=== PATIENT | female | born 1965 | race Two or more races ===

== ENCOUNTER 2021-06-13 17:42 | Inpatient (IN) | payer MEDICAID, OTHER ==
[~2021-06-13] VITALS: Ht 157.5 cm; Wt 67.7 kg
[2021-06-13] MEDS ORDERED: GLIP2.5T3 PO (17:53)
[2021-06-13] MEDS ORDERED: LISI40TA13 PO (17:53)
[2021-06-13] MEDS ORDERED: NITROGLYCERIN 0.4MG/HR PATCH TOP ONE (18:15)
[2021-06-13] MEDS ORDERED: LABETALOL HCL 20MG/4ML CARPUJECT IV ONE (18:15)
[2021-06-13 18:41] LABS: BASOPHILS % 0.4 % (0.0-2.0); EOSINOPHILS % 2.6 % (0.0-5.0); HEMATOCRIT. 31.5 % (36.0-48.0); HEMOGLOBIN. 10.9 g/dL (12.0-16.0); LYMPHOCYTES % 29.9 % (20.0-50.0); MEAN CORPUSCULAR HEMOGLOBIN 28.6 pg (28.0-32.0); MEAN CORPUSCULAR VOLUME 83.2 fL (81.0-99.0); MEAN PLATELET VOLUME 9.7 fl (7.4-10.4); MONOCYTES % 4.8 % (2.0-8.0); NEUTROPHILS % 62.3 % (40.0-76.0); PLATELET 194 x1000/uL (130-400); RED BLOOD CELL COUNT 3.79 mill/uL (4.2-5.4); RED CELL DISTRIBUTION WIDTH 13.8 % (11.6-14.6)
[2021-06-13 18:44] LABS: CHLORIDE 110 mEq/L (98-107)
[2021-06-13] MEDS ORDERED: LABETALOL 5MG/ML SYR 20 MG/4 ML SYRINGE IV SCH (18:45)
[2021-06-13] MEDS ORDERED: FUROSEMIDE 100MG/10ML VIAL IVP ONE (19:15)
[2021-06-13] MEDS ORDERED: LABETALOL 5MG/ML SYR 20 MG/4 ML SYRINGE IV NR (20:45)
[2021-06-14] MEDS ORDERED: LISINOPRIL 40MG TABLET PO SCH (04:00)
[2021-06-14] MEDS: HYDRALAZINE 20MG/ML VIAL IV PRN ×2 (06:01→16:15)
[2021-06-14 09:15] VITALS: BP 146/89
[2021-06-14] MEDS ORDERED: IPRATROPIUM/ALBUTEROL 0.5-3(2.5)MG/3ML NEB HHN PRN (09:30)
[2021-06-14] MEDS ORDERED: ACETAMINOPHEN 325MG TABLET PO PRN (09:30)
[2021-06-14] MEDS ORDERED: CLONIDINE 0.1MG TABLET PO PRN (09:30)
[2021-06-14] MEDS ORDERED: DIPHENHYDRAMINE 50MG/ML VIAL IV PRN (09:30)
[2021-06-14 10:16] VITALS: BP 146/89
[2021-06-14 12:00] VITALS: BP 182/95
[2021-06-14] MEDS: AMLODIPINE 5MG TABLET PO SCH ×2 (12:43→21:49)
[2021-06-14] MEDS: FUROSEMIDE 20MG/2ML VIAL IVP SCH (12:44)
[2021-06-14] MEDS: ONDANSETRON HCL 4MG/2ML INJ IV PRN (14:03)
[2021-06-14 16:00] VITALS: BP 192/104
[2021-06-14] MEDS: HYDRALAZINE HCL 25MG TABLET PO SCH ×2 (16:00→23:00)
[2021-06-14 20:00] VITALS: BP 128/65
[2021-06-14] MEDS ORDERED: DEXTROSE 50% WATER 50ML SYRINGE IV PRN (20:00)
[2021-06-14] MEDS: INSULIN LISPRO 100 UNITS/ML SUBCUT SCH (21:00)
[2021-06-14] MEDS: BLOOD SUGAR DIAGNOSTIC STRIP TEST SCH (21:50)
[2021-06-15] VITALS (32 sets, daily range): BP systolic 120–173; BP diastolic 61–123
[2021-06-15] MEDS: HYDRALAZINE HCL 25MG TABLET PO SCH ×3 (05:56→22:31)
[2021-06-15] MEDS ORDERED: EPINEPHRINE 5 MG in DEXT 5% WATER 245 ML IV SCH (06:00)
[2021-06-15] MEDS ORDERED: NOREPINEPHRINE 8 MG in DEXT 5% WATER 242 ML IV SCH (06:00)
[2021-06-15 06:19] LABS: CLARITY URINE CLEAR (CLEAR); COLOR URINE YELLOW (YELLOW); KETONES URINE NEGATIVE (NEGATIVE); LEUKOCYTE ESTERASE URINE TRACE (NEGATIVE); NITRITE URINE NEGATIVE (NEGATIVE); OCCULT BLOOD URINE TRACE (NEGATIVE); PROTEIN URINE 4+ (NEGATIVE); SPECIFIC GRAVITY URINE 1.013 (1.005-1.030); UROBILINOGEN URINE 0.2 E.U./dL (0.2-1.0)
[2021-06-15] MEDS: BLOOD SUGAR DIAGNOSTIC STRIP TEST SCH ×4 (06:27→20:34)
[2021-06-15] MEDS: INSULIN LISPRO 100 UNITS/ML SUBCUT SCH ×4 (07:42→20:34)
[2021-06-15] MEDS ORDERED: POLYMYXIN B SULFATE 500000 UNITS/VIAL ONE (08:21)
[2021-06-15] MEDS ORDERED: BACITRACIN 15GM TUBE TOP ONE (08:21)
[2021-06-15] MEDS ORDERED: THROMBIN (BOVINE) 5000 UNITS/VIAL TOP ONE (08:21)
[2021-06-15] MEDS ORDERED: SODIUM CHLORIDE 0.9% IRRIG SOL 2,000 ML IR ONE (08:21)
[2021-06-15] MEDS ORDERED: SODIUM CHLORIDE 0.9% INJ 10ML FLUSH IVF ONE (08:21)
[2021-06-15] MEDS ORDERED: LEVOFLOXACIN 500MG PREMIX 100 ML IV ONE (08:22)
[2021-06-15] MEDS ORDERED: LISINOPRIL 40MG TABLET PO SCH (09:00)
[2021-06-15 09:01] LABS: BASOPHILS % 0.4 % (0.0-2.0); EOSINOPHILS % 2.7 % (0.0-5.0); HEMATOCRIT. 27.4 % (36.0-48.0); HEMOGLOBIN. 9.3 g/dL (12.0-16.0); MEAN CORPUSCULAR HEMOGLOBIN 28.8 pg (28.0-32.0); MEAN CORPUSCULAR VOLUME 84.7 fL (81.0-99.0); MEAN PLATELET VOLUME 10.2 fl (7.4-10.4); MONOCYTES % 5.9 % (2.0-8.0); PLATELET 157 x1000/uL (130-400); RED BLOOD CELL COUNT 3.24 mill/uL (4.2-5.4); RED CELL DISTRIBUTION WIDTH 14.2 % (11.6-14.6)
[2021-06-15] MEDS ORDERED: BUPIVACAINE HCL/PF 0.25% (2.5MG/ML) 10ML ONE (09:06)
[2021-06-15 09:18] LABS: CHLORIDE 114 mEq/L (98-107)
[2021-06-15 09:25] LABS: HDL CHOLESTEROL 62 mg/dL (40-59); LDL CHOLESTEROL 93 mg/dL (5-100)
[2021-06-15 09:50] LABS: BG BASE EXCESS -6.6 mmol/L (-2.0-2.0); BG DEOXYHEMOGLOBIN 3.4 % (0.0-5.0); BG FRACTION INSPIRED OXYGEN 60; BG HCO3 ACT 18.2 mmol/L (22.0-26.0); BG METHEMOGLOBIN 0.3 % (0.0-1.5); BG OXYGEN SATURATION 96.6 % (92.0-98.5); BG OXYHEMOGLOBIN 96.3 % (94.0-97.0); BG PCO2 33.8 mmHg (35.0-45.0); BG PH 7.349 (7.350-7.450); BG PO2 92.2 mmHg (75.0-100.0); BG SAMPLE SITE LEFT BRACHIAL; BG TOTAL HEMOGLOBIN 10.3 g/dL (12.0-18.0); BG VENT MODE MASK - SIMPLE
[2021-06-15] MEDS: ERYTHROMYCIN BASE 0.5% OPHTH OINT 3.5GM BOTHEYE SCH (10:03)
[2021-06-15] MEDS: FUROSEMIDE 20MG/2ML VIAL IVP SCH (10:04)
[2021-06-15] MEDS: AMLODIPINE 5MG TABLET PO SCH ×2 (10:04→20:32)
[2021-06-15] MEDS ORDERED: POTASSIUM CHLORIDE 20MEQ TABLET SR PO NR (10:15)
[2021-06-15] MEDS ORDERED: ACETAMINOPHEN WITH CODEINE 300/30MG TABLET PO PRN (10:15)
[2021-06-15] MEDS: MORPHINE SULFATE 2 MG/ML CPJ (NOT FOR IM USE) IV PRN (10:25)
[2021-06-15] MEDS: ONDANSETRON HCL 4MG/2ML INJ IV PRN ×2 (12:01→22:42)
[2021-06-15 12:55] LABS: BASOPHILS % 0.3 % (0.0-2.0); EOSINOPHILS % 1.6 % (0.0-5.0); HEMATOCRIT. 31.6 % (36.0-48.0); HEMOGLOBIN. 10.6 g/dL (12.0-16.0); LYMPHOCYTES % 16.8 % (20.0-50.0); MEAN CORPUSCULAR HEMOGLOBIN 28.5 pg (28.0-32.0); MEAN CORPUSCULAR VOLUME 85.2 fL (81.0-99.0); MONOCYTES % 3.7 % (2.0-8.0); NEUTROPHILS % 77.6 % (40.0-76.0); PLATELET 173 x1000/uL (130-400); RED BLOOD CELL COUNT 3.71 mill/uL (4.2-5.4); RED CELL DISTRIBUTION WIDTH 14.2 % (11.6-14.6)
[2021-06-15] MEDS: LISINOPRIL 20MG TABLET PO SCH (18:13)
[2021-06-15 19:29] LABS: BASOPHILS % 0.2 % (0.0-2.0); EOSINOPHILS % 0.4 % (0.0-5.0); HEMATOCRIT. 32.5 % (36.0-48.0); HEMOGLOBIN. 10.8 g/dL (12.0-16.0); LYMPHOCYTES % 11.6 % (20.0-50.0); MEAN CORPUSCULAR HEMOGLOBIN 28.3 pg (28.0-32.0); MEAN CORPUSCULAR VOLUME 85.2 fL (81.0-99.0); MEAN PLATELET VOLUME 10.3 fl (7.4-10.4); MONOCYTES % 3.3 % (2.0-8.0); NEUTROPHILS % 84.5 % (40.0-76.0); PLATELET 182 x1000/uL (130-400); RED BLOOD CELL COUNT 3.81 mill/uL (4.2-5.4); RED CELL DISTRIBUTION WIDTH 14.2 % (11.6-14.6)
[2021-06-16] VITALS (32 sets, daily range): BP systolic 111–155; BP diastolic 57–78
[2021-06-16] MEDS ORDERED: MAGNESIUM 4 G PREMIX 100 ML IV SCH (02:00)
[2021-06-16] MEDS: MORPHINE SULFATE 2 MG/ML CPJ (NOT FOR IM USE) IV PRN ×3 (06:01→16:08)
[2021-06-16] MEDS: HYDRALAZINE HCL 25MG TABLET PO SCH ×3 (06:02→21:55)
[2021-06-16 06:48] LABS: BASOPHILS % 0.3 % (0.0-2.0); EOSINOPHILS % 2.5 % (0.0-5.0); LYMPHOCYTES % 22.8 % (20.0-50.0); MEAN CORPUSCULAR HEMOGLOBIN 28.9 pg (28.0-32.0); MEAN CORPUSCULAR VOLUME 84.1 fL (81.0-99.0); MONOCYTES % 7.6 % (2.0-8.0); NEUTROPHILS % 66.8 % (40.0-76.0); PLATELET 155 x1000/uL (130-400); RED BLOOD CELL COUNT 3.45 mill/uL (4.2-5.4); RED CELL DISTRIBUTION WIDTH 13.7 % (11.6-14.6)
[2021-06-16] MEDS: INSULIN LISPRO 100 UNITS/ML SUBCUT SCH ×2 (08:02→13:02)
[2021-06-16] MEDS: BLOOD SUGAR DIAGNOSTIC STRIP TEST SCH ×2 (08:02→12:14)
[2021-06-16] MEDS: AMLODIPINE 5MG TABLET PO SCH ×2 (08:38→21:13)
[2021-06-16] MEDS: ERYTHROMYCIN BASE 0.5% OPHTH OINT 3.5GM BOTHEYE SCH (08:38)
[2021-06-16] MEDS: LISINOPRIL 20MG TABLET PO SCH ×2 (08:38→21:14)
[2021-06-16] MEDS: ONDANSETRON HCL 4MG/2ML INJ IV PRN (16:08)
[2021-06-16] MEDS: SODIUM CHLORIDE 0.45% 1,000 ML IV SCH (20:49)
[2021-06-17] VITALS (12 sets, daily range): BP systolic 96–136; BP diastolic 52–77
[2021-06-17] MEDS ORDERED: DEXTROSE 50% WATER 50ML SYRINGE IV PRN (04:45)
[2021-06-17] MEDS: HYDRALAZINE HCL 25MG TABLET PO SCH ×3 (06:00→20:46)
[2021-06-17] MEDS: BLOOD SUGAR DIAGNOSTIC STRIP TEST SCH ×4 (06:13→20:46)
[2021-06-17] MEDS: AMLODIPINE 5MG TABLET PO SCH ×2 (08:43→20:46)
[2021-06-17] MEDS: LISINOPRIL 20MG TABLET PO SCH (08:43)
[2021-06-17] MEDS: INSULIN LISPRO 100 UNITS/ML SUBCUT SCH ×4 (08:43→20:44)
[2021-06-17 09:29] LABS: HEMATOCRIT. 28.6 % (36.0-48.0); HEMOGLOBIN. 9.6 g/dL (12.0-16.0); MEAN CORPUSCULAR HEMOGLOBIN 28.5 pg (28.0-32.0); MEAN CORPUSCULAR VOLUME 85.5 fL (81.0-99.0); MEAN PLATELET VOLUME 10.6 fl (7.4-10.4); PLATELET 151 x1000/uL (130-400); RED BLOOD CELL COUNT 3.35 mill/uL (4.2-5.4); RED CELL DISTRIBUTION WIDTH 14.4 % (11.6-14.6)
[2021-06-17] MEDS: ERYTHROMYCIN BASE 0.5% OPHTH OINT 3.5GM BOTHEYE SCH (09:45)
[2021-06-17] MEDS: MORPHINE SULFATE 2 MG/ML CPJ (NOT FOR IM USE) IV PRN ×2 (10:08→16:58)
[2021-06-17] MEDS: SODIUM CHLORIDE 0.45% 1,000 ML IV SCH (11:56)
[2021-06-17 14:19] LABS: PLATELET ESTIMATE NORMAL
[2021-06-17] MEDS ORDERED: FUROSEMIDE 20MG/2ML VIAL IVP NR ×2 (15:45→17:15)
[2021-06-17] MEDS ORDERED: SODIUM CHLORIDE 0.9% IV ONE (18:30)
[2021-06-17] MEDS ORDERED: FUROSEMIDE IV ONE (18:30)
[2021-06-18] VITALS (13 sets, daily range): BP systolic 118–146; BP diastolic 56–83
[2021-06-18] MEDS: MORPHINE SULFATE 2 MG/ML CPJ (NOT FOR IM USE) IV PRN (00:40)
[2021-06-18] MEDS: HYDRALAZINE HCL 25MG TABLET PO SCH ×3 (05:18→21:34)
[2021-06-18] MEDS: INSULIN LISPRO 100 UNITS/ML SUBCUT SCH ×5 (05:57→21:35)
[2021-06-18] MEDS: BLOOD SUGAR DIAGNOSTIC STRIP TEST SCH ×5 (05:57→21:35)
[2021-06-18 06:51] LABS: BASOPHILS % 0.6 % (0.0-2.0); EOSINOPHILS % 0.5 % (0.0-5.0); HEMATOCRIT. 29.9 % (36.0-48.0); HEMOGLOBIN. 9.8 g/dL (12.0-16.0); LYMPHOCYTES % 8.5 % (20.0-50.0); MEAN CORPUSCULAR HEMOGLOBIN 28.3 pg (28.0-32.0); MEAN PLATELET VOLUME 11.3 fl (7.4-10.4); MONOCYTES % 3.8 % (2.0-8.0); NEUTROPHILS % 86.6 % (40.0-76.0); PLATELET 166 x1000/uL (130-400); RED BLOOD CELL COUNT 3.48 mill/uL (4.2-5.4); RED CELL DISTRIBUTION WIDTH 14.3 % (11.6-14.6)
[2021-06-18] MEDS ORDERED: FUROSEMIDE 20MG TABLET PO SCH (09:00)
[2021-06-18] MEDS ORDERED: FUROSEMIDE 20MG TABLET PO NR (09:00)
[2021-06-18] MEDS ORDERED: NALOXONE HCL 0.4MG/ML VIAL IV PRN (09:30)
[2021-06-18] MEDS: ERYTHROMYCIN BASE 0.5% OPHTH OINT 3.5GM BOTHEYE SCH (09:44)
[2021-06-18] MEDS: AMLODIPINE 5MG TABLET PO SCH ×2 (09:44→21:34)
[2021-06-18] MEDS: SODIUM CHLORIDE 0.45% 1,000 ML IV SCH (14:07)
[2021-06-18] MEDS ORDERED: EPOETIN ALFA-EPBX 4,000 UNIT/ML VIAL SUBCUT NR (21:00)
[2021-06-18] MEDS: SODIUM CHLORIDE 0.9% 1,000 ML IV SCH (21:33)
[2021-06-18] MEDS: IRON SUCROSE COMPLEX 100 MG/5 ML ML IV SCH (21:34)
[2021-06-19] VITALS (13 sets, daily range): BP systolic 102–159; BP diastolic 67–84
[2021-06-19] MEDS: HYDRALAZINE HCL 25MG TABLET PO SCH ×3 (05:57→21:24)
[2021-06-19 06:37] LABS: BASOPHILS % 0.2 % (0.0-2.0); EOSINOPHILS % 2.2 % (0.0-5.0); HEMATOCRIT. 30.1 % (36.0-48.0); HEMOGLOBIN. 10.2 g/dL (12.0-16.0); LYMPHOCYTES % 9.1 % (20.0-50.0); MEAN CORPUSCULAR HEMOGLOBIN 29.6 pg (28.0-32.0); MEAN CORPUSCULAR VOLUME 87.3 fL (81.0-99.0); MEAN PLATELET VOLUME 11.2 fl (7.4-10.4); MONOCYTES % 4.2 % (2.0-8.0); NEUTROPHILS % 84.3 % (40.0-76.0); PLATELET 210 x1000/uL (130-400); RED BLOOD CELL COUNT 3.45 mill/uL (4.2-5.4); RED CELL DISTRIBUTION WIDTH 14.2 % (11.6-14.6)
[2021-06-19] MEDS: AMLODIPINE 5MG TABLET PO SCH ×2 (09:42→21:24)
[2021-06-19] MEDS: ERYTHROMYCIN BASE 0.5% OPHTH OINT 3.5GM BOTHEYE SCH (09:44)
[2021-06-19] MEDS: INSULIN LISPRO 100 UNITS/ML SUBCUT SCH ×3 (12:20→21:00)
[2021-06-19] MEDS: BLOOD SUGAR DIAGNOSTIC STRIP TEST SCH ×3 (12:47→21:07)
[2021-06-19] MEDS: SODIUM CHLORIDE 0.9% 1,000 ML IV SCH (13:39)
[2021-06-19] MEDS ORDERED: SODIUM POLYSTYRENE SULFONATE 15 G/60 ML BOT PO SCH (15:00)
[2021-06-19] MEDS ORDERED: HEPARIN 1000 UNITS/ML 10ML ONE (15:13)
[2021-06-19] MEDS ORDERED: LIDOCAINE HCL 1% 20ML VIAL (Pyxis) INJ ONE (15:13)
[2021-06-19] MEDS ORDERED: LINEZOLID 600 MG PREMIX 300 ML IV SCH (17:00)
[2021-06-19 18:13] LABS: HEPATITIS B SURFACE ANTIGEN NEGATIVE
[2021-06-19] MEDS ORDERED: LACTULOSE 20G/30ML UDC PO SCH (20:00)
[2021-06-19] MEDS ORDERED: EPOETIN ALFA-EPBX 4,000 UNIT/ML VIAL SUBCUT SCH (21:00)
[2021-06-19] MEDS: LINEZOLID 600 MG PREMIX 300 ML IV SCH (21:23)
[2021-06-19] MEDS: IRON SUCROSE COMPLEX 100 MG/5 ML ML IV SCH (21:24)
[2021-06-19 21:35] LABS: HEMATOCRIT 27.8 % (36.0-48.0); HEMOGLOBIN 9.6 g/dL (12.0-16.0); MEAN CORPUSCULAR HEMOGLOBIN 29.1 pg (28.0-32.0); MEAN CORPUSCULAR VOLUME 84.3 fL (81.0-99.0); PLATELET 201 x1000/uL (130-400); RED BLOOD CELL COUNT 3.29 mill/uL (4.2-5.4); RED CELL DISTRIBUTION WIDTH 14.3 % (11.6-14.6)
[2021-06-20] VITALS (11 sets, daily range): BP systolic 134–158; BP diastolic 69–116
[2021-06-20 06:05] LABS: BASOPHILS % 0.4 % (0.0-2.0); EOSINOPHILS % 3.4 % (0.0-5.0); HEMATOCRIT. 28.3 % (36.0-48.0); HEMOGLOBIN. 9.5 g/dL (12.0-16.0); MEAN CORPUSCULAR HEMOGLOBIN 28.7 pg (28.0-32.0); MEAN CORPUSCULAR VOLUME 85.4 fL (81.0-99.0); MEAN PLATELET VOLUME 9.9 fl (7.4-10.4); MONOCYTES % 5.2 % (2.0-8.0); PLATELET 208 x1000/uL (130-400); RED BLOOD CELL COUNT 3.32 mill/uL (4.2-5.4); RED CELL DISTRIBUTION WIDTH 13.7 % (11.6-14.6)
[2021-06-20 06:14] LABS: CHLORIDE 107 mEq/L (98-107)
[2021-06-20] MEDS: BLOOD SUGAR DIAGNOSTIC STRIP TEST SCH ×4 (06:16→21:32)
[2021-06-20] MEDS: SODIUM CHLORIDE 0.9% 1,000 ML IV SCH ×2 (06:16→22:03)
[2021-06-20] MEDS: HYDRALAZINE HCL 25MG TABLET PO SCH ×3 (06:16→21:32)
[2021-06-20] MEDS: INSULIN LISPRO 100 UNITS/ML SUBCUT SCH ×4 (06:46→21:00)
[2021-06-20] MEDS: ERYTHROMYCIN BASE 0.5% OPHTH OINT 3.5GM BOTHEYE SCH (08:31)
[2021-06-20] MEDS: AMLODIPINE 5MG TABLET PO SCH ×2 (08:32→21:32)
[2021-06-20] MEDS: LINEZOLID 600 MG PREMIX 300 ML IV SCH ×2 (08:32→20:07)
[2021-06-20] MEDS: IRON SUCROSE COMPLEX 100 MG/5 ML ML IV SCH (21:30)
[2021-06-21] VITALS (16 sets, daily range): BP systolic 114–173; BP diastolic 46–94
[2021-06-21] MEDS: HYDRALAZINE HCL 25MG TABLET PO SCH ×3 (06:00→14:52)
[2021-06-21] MEDS: BLOOD SUGAR DIAGNOSTIC STRIP TEST SCH ×4 (06:25→22:14)
[2021-06-21] MEDS: INSULIN LISPRO 100 UNITS/ML SUBCUT SCH ×4 (06:34→22:24)
[2021-06-21] MEDS: LINEZOLID 600 MG PREMIX 300 ML IV SCH ×2 (07:42→20:46)
[2021-06-21] MEDS ORDERED: TUBERCULIN,PURIF.PROT.DERIV. 5 TU/0.1 ML SYR ID ONE (09:00)
[2021-06-21] MEDS: ERYTHROMYCIN BASE 0.5% OPHTH OINT 3.5GM BOTHEYE SCH (10:02)
[2021-06-21] MEDS: AMLODIPINE 5MG TABLET PO SCH ×2 (10:02→20:46)
[2021-06-21 11:14] LABS: BASOPHILS % 0.3 % (0.0-2.0); EOSINOPHILS % 6.2 % (0.0-5.0); HEMATOCRIT. 34.1 % (36.0-48.0); HEMOGLOBIN. 11.3 g/dL (12.0-16.0); LYMPHOCYTES % 17.7 % (20.0-50.0); MEAN CORPUSCULAR HEMOGLOBIN 28.2 pg (28.0-32.0); MEAN CORPUSCULAR VOLUME 85.1 fL (81.0-99.0); MEAN PLATELET VOLUME 9.9 fl (7.4-10.4); MONOCYTES % 6.4 % (2.0-8.0); NEUTROPHILS % 69.4 % (40.0-76.0); PLATELET 266 x1000/uL (130-400); RED CELL DISTRIBUTION WIDTH 13.8 % (11.6-14.6)
[2021-06-21 14:49] LABS: HEPATITIS B SURFACE ANTIGEN NEGATIVE
[2021-06-21] MEDS: IRON SUCROSE COMPLEX 100 MG/5 ML ML IV SCH (20:48)
[2021-06-21] MEDS: HYDRALAZINE HCL 50MG TABLET PO SCH (22:00)
[2021-06-22] VITALS (15 sets, daily range): BP systolic 141–164; BP diastolic 65–94
[2021-06-22 06:43] LABS: BASOPHILS % 0.3 % (0.0-2.0); EOSINOPHILS % 4.1 % (0.0-5.0); HEMOGLOBIN. 10.8 g/dL (12.0-16.0); LYMPHOCYTES % 16.1 % (20.0-50.0); MEAN CORPUSCULAR HEMOGLOBIN 28.5 pg (28.0-32.0); MEAN CORPUSCULAR VOLUME 84.5 fL (81.0-99.0); MEAN PLATELET VOLUME 9.6 fl (7.4-10.4); MONOCYTES % 8.6 % (2.0-8.0); NEUTROPHILS % 70.9 % (40.0-76.0); PLATELET 247 x1000/uL (130-400); RED BLOOD CELL COUNT 3.79 mill/uL (4.2-5.4); RED CELL DISTRIBUTION WIDTH 13.9 % (11.6-14.6)
[2021-06-22] MEDS: HYDRALAZINE HCL 50MG TABLET PO SCH ×3 (06:55→23:15)
[2021-06-22] MEDS: BLOOD SUGAR DIAGNOSTIC STRIP TEST SCH ×4 (06:55→20:38)
[2021-06-22] MEDS: INSULIN LISPRO 100 UNITS/ML SUBCUT SCH ×4 (07:20→20:38)
[2021-06-22] MEDS: LINEZOLID 600 MG PREMIX 300 ML IV SCH ×2 (09:26→20:34)
[2021-06-22] MEDS: AMLODIPINE 5MG TABLET PO SCH ×2 (09:27→20:35)
[2021-06-22] MEDS: DOCUSATE SODIUM 100MG CAPSULE PO SCH ×2 (09:27→17:03)
[2021-06-22] MEDS: ERYTHROMYCIN BASE 0.5% OPHTH OINT 3.5GM BOTHEYE SCH (09:29)
[2021-06-22 10:33] LABS: BG BASE EXCESS -1.6 mmol/L (-2.0-2.0); BG CARBOXYHEMOGLOBIN 0.3 % (0.5-1.5); BG DEOXYHEMOGLOBIN 7.6 % (0.0-5.0); BG FRACTION INSPIRED OXYGEN 24; BG METHEMOGLOBIN 0.1 % (0.0-1.5); BG OXYGEN SATURATION 92.4 % (92.0-98.5); BG PCO2 38.5 mmHg (35.0-45.0); BG PH 7.394 (7.350-7.450); BG PO2 62.3 mmHg (75.0-100.0); BG SAMPLE SITE RIGHT RADIAL; BG TOTAL HEMOGLOBIN 11.7 g/dL (12.0-18.0); BG VENT MODE NASAL CANNULA
[2021-06-23] VITALS (15 sets, daily range): BP systolic 126–156; BP diastolic 68–88
[2021-06-23] MEDS: HYDRALAZINE HCL 50MG TABLET PO SCH ×3 (06:00→21:48)
[2021-06-23] MEDS: BLOOD SUGAR DIAGNOSTIC STRIP TEST SCH ×4 (06:42→20:49)
[2021-06-23] MEDS: INSULIN LISPRO 100 UNITS/ML SUBCUT SCH ×4 (07:20→20:50)
[2021-06-23 07:44] LABS: BASOPHILS % 0.3 % (0.0-2.0); EOSINOPHILS % 5.3 % (0.0-5.0); HEMATOCRIT. 33.6 % (36.0-48.0); HEMOGLOBIN. 11.3 g/dL (12.0-16.0); LYMPHOCYTES % 21.9 % (20.0-50.0); MEAN CORPUSCULAR HEMOGLOBIN 28.4 pg (28.0-32.0); MEAN CORPUSCULAR VOLUME 84.4 fL (81.0-99.0); MEAN PLATELET VOLUME 9.1 fl (7.4-10.4); MONOCYTES % 10.1 % (2.0-8.0); NEUTROPHILS % 62.4 % (40.0-76.0); PLATELET 262 x1000/uL (130-400); RED BLOOD CELL COUNT 3.98 mill/uL (4.2-5.4); RED CELL DISTRIBUTION WIDTH 13.7 % (11.6-14.6)
[2021-06-23] MEDS: LINEZOLID 600 MG PREMIX 300 ML IV SCH ×2 (09:13→20:49)
[2021-06-23] MEDS: DOCUSATE SODIUM 100MG CAPSULE PO SCH ×2 (09:13→17:21)
[2021-06-23] MEDS: AMLODIPINE 5MG TABLET PO SCH ×2 (09:14→20:49)
[2021-06-24] VITALS (13 sets, daily range): BP systolic 113–154; BP diastolic 68–92
[2021-06-24] MEDS: HYDRALAZINE HCL 50MG TABLET PO SCH ×3 (05:19→21:00)
[2021-06-24 06:50] LABS: BASOPHILS % 0.3 % (0.0-2.0); EOSINOPHILS % 3.9 % (0.0-5.0); HEMATOCRIT. 32.8 % (36.0-48.0); LYMPHOCYTES % 22.4 % (20.0-50.0); MEAN CORPUSCULAR HEMOGLOBIN 28.5 pg (28.0-32.0); MEAN CORPUSCULAR VOLUME 84.8 fL (81.0-99.0); MEAN PLATELET VOLUME 8.9 fl (7.4-10.4); NEUTROPHILS % 63.4 % (40.0-76.0); PLATELET 264 x1000/uL (130-400); RED BLOOD CELL COUNT 3.87 mill/uL (4.2-5.4); RED CELL DISTRIBUTION WIDTH 14.3 % (11.6-14.6)
[2021-06-24] MEDS: INSULIN LISPRO 100 UNITS/ML SUBCUT SCH ×4 (07:20→20:52)
[2021-06-24] MEDS: BLOOD SUGAR DIAGNOSTIC STRIP TEST SCH ×4 (07:37→20:50)
[2021-06-24] MEDS: AMLODIPINE 5MG TABLET PO SCH ×2 (08:48→20:50)
[2021-06-24] MEDS: LINEZOLID 600 MG PREMIX 300 ML IV SCH ×2 (08:48→20:50)
[2021-06-24] MEDS: DOCUSATE SODIUM 100MG CAPSULE PO SCH ×2 (08:48→17:00)
[2021-06-24] MEDS ORDERED: BISACODYL 10MG SUPP PR PRN (09:45)
[2021-06-25] VITALS (11 sets, daily range): BP systolic 105–143; BP diastolic 50–78
[2021-06-25] MEDS: HYDRALAZINE HCL 50MG TABLET PO SCH ×3 (05:47→21:02)
[2021-06-25] MEDS: BLOOD SUGAR DIAGNOSTIC STRIP TEST SCH ×4 (06:03→20:23)
[2021-06-25] MEDS: INSULIN LISPRO 100 UNITS/ML SUBCUT SCH ×4 (06:42→21:01)
[2021-06-25] MEDS: LINEZOLID 600 MG PREMIX 300 ML IV SCH ×2 (07:57→20:22)
[2021-06-25] MEDS: DOCUSATE SODIUM 100MG CAPSULE PO SCH ×2 (09:19→17:00)
[2021-06-25] MEDS: AMLODIPINE 5MG TABLET PO SCH ×2 (09:19→21:02)
[2021-06-25] MEDS ORDERED: TUBERCULIN,PURIF.PROT.DERIV. 5 TU/0.1 ML SYR ID ONE (11:15)
[2021-06-25] MEDS ORDERED: HEPATITIS B VIRUS VACCINE-PF 10 MCG/0.5 VIAL IM ONE (16:00)
[2021-06-26] VITALS (10 sets, daily range): BP systolic 121–160; BP diastolic 57–83
[2021-06-26] MEDS: HYDRALAZINE HCL 50MG TABLET PO SCH ×3 (05:40→22:34)
[2021-06-26] MEDS: BLOOD SUGAR DIAGNOSTIC STRIP TEST SCH ×4 (05:52→21:18)
[2021-06-26 06:25] LABS: BASOPHILS % 0.2 % (0.0-2.0); EOSINOPHILS % 4.4 % (0.0-5.0); HEMATOCRIT. 31.3 % (36.0-48.0); HEMOGLOBIN. 10.4 g/dL (12.0-16.0); LYMPHOCYTES % 21.9 % (20.0-50.0); MEAN CORPUSCULAR HEMOGLOBIN 28.5 pg (28.0-32.0); MEAN CORPUSCULAR VOLUME 85.3 fL (81.0-99.0); MEAN PLATELET VOLUME 8.4 fl (7.4-10.4); MONOCYTES % 7.5 % (2.0-8.0); PLATELET 254 x1000/uL (130-400); RED BLOOD CELL COUNT 3.67 mill/uL (4.2-5.4); RED CELL DISTRIBUTION WIDTH 13.7 % (11.6-14.6)
[2021-06-26] MEDS: INSULIN LISPRO 100 UNITS/ML SUBCUT SCH ×4 (06:39→21:00)
[2021-06-26] MEDS: LINEZOLID 600 MG PREMIX 300 ML IV SCH ×2 (09:35→20:27)
[2021-06-26] MEDS: DOCUSATE SODIUM 100MG CAPSULE PO SCH ×2 (09:35→16:52)
[2021-06-26] MEDS: AMLODIPINE 5MG TABLET PO SCH ×2 (09:36→20:28)
[2021-06-26 19:25] LABS: CLARITY URINE CLEAR (CLEAR); COLOR URINE YELLOW (YELLOW); KETONES URINE NEGATIVE (NEGATIVE); LEUKOCYTE ESTERASE URINE TRACE (NEGATIVE); NITRITE URINE NEGATIVE (NEGATIVE); OCCULT BLOOD URINE NEGATIVE (NEGATIVE); PROTEIN URINE 3+ (NEGATIVE); SPECIFIC GRAVITY URINE 1.016 (1.005-1.030); UROBILINOGEN URINE 0.2 E.U./dL (0.2-1.0)
[2021-06-26] MEDS: METOPROLOL TARTRATE 25MG TABLET PO SCH (20:28)
[2021-06-27] VITALS (22 sets, daily range): BP systolic 111–165; BP diastolic 51–92
[2021-06-27] MEDS: BLOOD SUGAR DIAGNOSTIC STRIP TEST SCH ×4 (06:04→20:17)
[2021-06-27] MEDS: HYDRALAZINE HCL 50MG TABLET PO SCH ×3 (06:06→22:00)
[2021-06-27 07:07] LABS: BASOPHILS % 0.3 % (0.0-2.0); HEMATOCRIT. 30.5 % (36.0-48.0); HEMOGLOBIN. 10.3 g/dL (12.0-16.0); LYMPHOCYTES % 20.6 % (20.0-50.0); MEAN CORPUSCULAR HEMOGLOBIN 28.8 pg (28.0-32.0); MEAN CORPUSCULAR VOLUME 84.8 fL (81.0-99.0); MEAN PLATELET VOLUME 8.1 fl (7.4-10.4); MONOCYTES % 4.2 % (2.0-8.0); NEUTROPHILS % 69.9 % (40.0-76.0); PLATELET 255 x1000/uL (130-400); RED BLOOD CELL COUNT 3.59 mill/uL (4.2-5.4); RED CELL DISTRIBUTION WIDTH 14.1 % (11.6-14.6)
[2021-06-27] MEDS: INSULIN LISPRO 100 UNITS/ML SUBCUT SCH ×4 (07:20→20:39)
[2021-06-27] MEDS: LINEZOLID 600 MG PREMIX 300 ML IV SCH ×2 (08:32→20:17)
[2021-06-27] MEDS: METOPROLOL TARTRATE 25MG TABLET PO SCH ×2 (09:00→20:17)
[2021-06-27] MEDS: DOCUSATE SODIUM 100MG CAPSULE PO SCH ×2 (09:00→17:00)
[2021-06-27] MEDS: AMLODIPINE 5MG TABLET PO SCH ×2 (09:00→20:17)
[2021-06-27] MEDS ORDERED: LIDOCAINE HCL 1% 30ML VIAL (10MG/ML) ONE (09:50)
[2021-06-27] MEDS ORDERED: FENTANYL CITRATE/PF 50MCG/ML 2ML VIAL ONE (09:50)
[2021-06-27] MEDS ORDERED: HEPARIN 1000 UNITS/ML 10ML ONE (09:50)
[2021-06-27 09:53] LABS: PARTIAL THROMBOPLASTIN TIME 29.6 sec (23.4-31.0); PROTHROMBIN TIME 10.3 sec (9.6-11.0)
[2021-06-27] MEDS ORDERED: HYDR-4135 PO (13:15)
[2021-06-27] MEDS ORDERED: AMLO5TAB88 PO (13:15)
[2021-06-27] MEDS ORDERED: METO25TA6 PO (13:15)
[2021-06-27] MEDS ORDERED: LINE600T14 PO (13:15)
== END 2021-06-27 23:20 | DRG 207 ==
LOC: ER 17:42 → 6WST 21:38 → EDBEDREQ 21:41 → EDBEDREQTM 21:41 → CANRESERV 23:01 → ENRESERV 23:01 → CVICU 06-15 09:17 → 3WST 06-16 12:58 → 6EST 06-22 02:35 → 3WST 06-22 02:39
PROVIDERS: ADMIT Internal Medicine; ATTEND Internal Medicine
PROC: 0W9D30Z Drainage of Pericardial Cavity with Drainage Device, Percutaneous Approach (ICD-10-PCS; principal; 2021-06-15)
PROC: 02HV33Z Insertion of Infusion Device into Superior Vena Cava, Percutaneous Approach (ICD-10-PCS; 2021-06-19)
PROC: B548ZZA Ultrasonography of Superior Vena Cava, Guidance (ICD-10-PCS; 2021-06-19)
PROC: 5A1D70Z Performance of Urinary Filtration, Intermittent, Less than 6 Hours Per Day (ICD-10-PCS; 2021-06-19)
PROC: 5A1D70Z Performance of Urinary Filtration, Intermittent, Less than 6 Hours Per Day (ICD-10-PCS; 2021-06-21)
PROC: 5A1D70Z Performance of Urinary Filtration, Intermittent, Less than 6 Hours Per Day (ICD-10-PCS; 2021-06-24)
PROC: 0JH63XZ Insertion of Tunneled Vascular Access Device into Chest Subcutaneous Tissue and Fascia, Percutaneous Approach (ICD-10-PCS; 2021-06-27)
PROC: 02HV33Z Insertion of Infusion Device into Superior Vena Cava, Percutaneous Approach (ICD-10-PCS; 2021-06-27)
PROC: B518ZZA Fluoroscopy of Superior Vena Cava, Guidance (ICD-10-PCS; 2021-06-27)
PROC: 05PYX3Z Removal of Infusion Device from Upper Vein, External Approach (ICD-10-PCS; 2021-06-27)
DX: I30.1 Infective pericarditis (principal); I31.4 Cardiac tamponade; N17.0 Acute kidney failure with tubular necrosis; A41.9 Sepsis, unspecified organism; E46 Unspecified protein-calorie malnutrition; I47.2 Ventricular tachycardia; I95.9 Hypotension, unspecified; E11.22 Type 2 diabetes mellitus with diabetic chronic kidney disease; B95.2 Enterococcus as the cause of diseases classified elsewhere; I31.3 Pericardial effusion (noninflammatory); E87.0 Hyperosmolality and hypernatremia; D64.9 Anemia, unspecified; N18.4 Chronic kidney disease, stage 4 (severe); I13.10 Hypertensive heart and chronic kidney disease without heart failure, with stage 1 through stage 4 chronic kidney disease, or unspecified chronic kidney disease; J90 Pleural effusion, not elsewhere classified; Z20.822 Contact with and (suspected) exposure to COVID-19; I16.1 Hypertensive emergency; E87.70 Fluid overload, unspecified; J98.11 Atelectasis; E87.5 Hyperkalemia; R09.02 Hypoxemia; I34.0 Nonrheumatic mitral (valve) insufficiency; T50.2X5A Adverse effect of carbonic-anhydrase inhibitors, benzothiadiazides and other diuretics, initial encounter; Z90.49 Acquired absence of other specified parts of digestive tract; Z99.2 Dependence on renal dialysis; Y92.89 Other specified places as the place of occurrence of the external cause; Z68.27 Body mass index [BMI] 27.0-27.9, adult
CPT/HCPCS: 36415; 36558; 36589; 36600; 71045; 76770; 77001; 80048; 80053; 80061; 81003; 82140; 82375; 82805; 82962; 83036; 83735; 83880; 84145; 84443; 84484; 85025; 85027; 86705; 86709; 86803; 87070; 87075; 87077; 87102; 87116; 87186; 87340; 87426; 88108; 88305; 88312; 90585; 93005; 93306; 93970; 97110; 97116; 97162; 97166; 97530; 97535; 99285; C1750; C1752; C1769; C1887; J0360; J0885; J1642; J1644; J1815; J1940; J1956; J2020; J2270; J2405; J3010; J3475; J3490; J7030; J7060; L3908; L8514; U0003; U0005; A4315

== ENCOUNTER 2021-08-16 13:34 | Inpatient (IN) | payer MEDICAID, OTHER ==
[~2021-08-16] VITALS: Ht 152.4 cm; Wt 56.7 kg
[~2021-08-16 13:34] MED LIST: AMLO5TAB88 PO; HYDR-4135 PO; LINE600T14 PO; METO25TA6 PO
[2021-08-16 14:48] LABS: BASOPHILS % 0.4 % (0.0-2.0); EOSINOPHILS % 6.1 % (0.0-5.0); HEMATOCRIT. 28.9 % (36.0-48.0); HEMOGLOBIN. 9.4 g/dL (12.0-16.0); MEAN CORPUSCULAR HEMOGLOBIN 28.4 pg (28.0-32.0); MEAN CORPUSCULAR VOLUME 87.5 fL (81.0-99.0); MEAN PLATELET VOLUME 8.7 fl (7.4-10.4); MONOCYTES % 8.3 % (2.0-8.0); NEUTROPHILS % 42.2 % (40.0-76.0); PLATELET 287 x1000/uL (130-400); RED CELL DISTRIBUTION WIDTH 15.7 % (11.6-14.6)
[2021-08-16 14:59] LABS: PHOSPHORUS 5.9 mg/dL (2.5-4.9)
[2021-08-17] VITALS (7 sets, daily range): BP systolic 158–188; BP diastolic 69–86
[2021-08-17] MEDS ORDERED: EPOETIN ALFA-EPBX 4,000 UNIT/ML VIAL SUBCUT SCH (01:45)
[2021-08-17] MEDS ORDERED: DEXTROSE 50% WATER 50ML SYRINGE IV PRN (03:45)
[2021-08-17] MEDS: INSULIN LISPRO 100 UNITS/ML SUBCUT SCH ×4 (05:40→20:58)
[2021-08-17] MEDS: BLOOD SUGAR DIAGNOSTIC STRIP TEST SCH ×4 (05:40→20:59)
[2021-08-17] MEDS ORDERED: HYDRALAZINE HCL 25MG TABLET PO SCH (06:00)
[2021-08-17] MEDS: METOPROLOL TARTRATE 25MG TABLET PO SCH ×2 (08:04→20:59)
[2021-08-17] MEDS ORDERED: AMLODIPINE 5MG TABLET PO SCH (09:00)
[2021-08-17] MEDS: HYDRALAZINE HCL 100MG TABLET PO SCH ×2 (13:08→21:50)
[2021-08-17] MEDS: AMLODIPINE 5MG TABLET PO SCH (16:14)
[2021-08-17] MEDS: MINOXIDIL 2.5MG TABLET PO SCH (20:58)
[2021-08-17] MEDS: FUROSEMIDE 40MG TABLET PO SCH (23:39)
[2021-08-18] VITALS: BP 149/73
[2021-08-18] MEDS: IRON SUCROSE COMPLEX 100 MG/5 ML ML IV SCH (01:11)
[2021-08-18 04:00] VITALS: BP 144/68
[2021-08-18] MEDS: HYDRALAZINE HCL 100MG TABLET PO SCH ×3 (05:24→21:42)
[2021-08-18 07:45] VITALS: BP 145/65
[2021-08-18] MEDS: INSULIN LISPRO 100 UNITS/ML SUBCUT SCH ×4 (07:50→21:00)
[2021-08-18] MEDS: BLOOD SUGAR DIAGNOSTIC STRIP TEST SCH ×4 (07:50→21:39)
[2021-08-18] MEDS: FUROSEMIDE 40MG TABLET PO SCH (08:04)
[2021-08-18] MEDS: MINOXIDIL 2.5MG TABLET PO SCH ×2 (08:04→21:41)
[2021-08-18] MEDS: AMLODIPINE 5MG TABLET PO SCH ×2 (08:04→16:00)
[2021-08-18] MEDS: METOPROLOL TARTRATE 25MG TABLET PO SCH ×2 (08:04→21:43)
[2021-08-18 08:37] LABS: BASOPHILS % 0.4 % (0.0-2.0); EOSINOPHILS % 6.7 % (0.0-5.0); HEMATOCRIT. 24.7 % (36.0-48.0); HEMOGLOBIN. 8.2 g/dL (12.0-16.0); LYMPHOCYTES % 32.6 % (20.0-50.0); MEAN CORPUSCULAR HEMOGLOBIN 28.9 pg (28.0-32.0); MEAN CORPUSCULAR VOLUME 86.5 fL (81.0-99.0); MEAN PLATELET VOLUME 8.5 fl (7.4-10.4); MONOCYTES % 6.8 % (2.0-8.0); NEUTROPHILS % 53.5 % (40.0-76.0); PLATELET 290 x1000/uL (130-400); RED BLOOD CELL COUNT 2.85 mill/uL (4.2-5.4); RED CELL DISTRIBUTION WIDTH 15.7 % (11.6-14.6)
[2021-08-18 11:38] VITALS: BP 158/65
[2021-08-18 15:45] VITALS: BP 114/79
[2021-08-18] MEDS ORDERED: ONDANSETRON HCL 4MG/2ML INJ IV PRN (17:30)
[2021-08-18 20:00] VITALS: BP 131/58
[2021-08-18] MEDS ORDERED: EPOETIN ALFA-EPBX 4,000 UNIT/ML VIAL SUBCUT ONE (20:00)
[2021-08-18] MEDS ORDERED: EPOETIN ALFA-EPBX 4,000 UNIT/ML VIAL SUBCUT NR (21:00)
[2021-08-19] VITALS: BP 119/57
[2021-08-19] MEDS: IRON SUCROSE COMPLEX 100 MG/5 ML ML IV SCH (03:48)
[2021-08-19 04:00] VITALS: BP 102/63
[2021-08-19] MEDS: BLOOD SUGAR DIAGNOSTIC STRIP TEST SCH ×4 (05:57→20:44)
[2021-08-19] MEDS: HYDRALAZINE HCL 100MG TABLET PO SCH ×3 (05:57→21:30)
[2021-08-19 08:00] VITALS: BP 148/61
[2021-08-19] MEDS: INSULIN LISPRO 100 UNITS/ML SUBCUT SCH ×4 (08:10→20:44)
[2021-08-19] MEDS: MINOXIDIL 2.5MG TABLET PO SCH ×2 (08:31→20:44)
[2021-08-19] MEDS: FUROSEMIDE 40MG TABLET PO SCH (08:31)
[2021-08-19] MEDS: AMLODIPINE 5MG TABLET PO SCH ×2 (08:32→17:00)
[2021-08-19] MEDS: METOPROLOL TARTRATE 25MG TABLET PO SCH ×2 (08:32→20:44)
[2021-08-19 12:00] VITALS: BP 112/50
[2021-08-19 16:00] VITALS: BP 105/54
[2021-08-19 20:00] VITALS: BP 100/61
[2021-08-20] VITALS: BP 134/67
[2021-08-20] MEDS: IRON SUCROSE COMPLEX 100 MG/5 ML ML IV SCH (00:59)
[2021-08-20 04:00] VITALS: BP 142/63
[2021-08-20] MEDS: HYDRALAZINE HCL 100MG TABLET PO SCH ×3 (05:05→20:18)
[2021-08-20] MEDS: BLOOD SUGAR DIAGNOSTIC STRIP TEST SCH ×4 (07:40→20:18)
[2021-08-20 08:00] VITALS: BP 128/62
[2021-08-20] MEDS: INSULIN LISPRO 100 UNITS/ML SUBCUT SCH ×4 (08:10→20:18)
[2021-08-20] MEDS: MINOXIDIL 2.5MG TABLET PO SCH ×2 (08:44→20:18)
[2021-08-20] MEDS: METOPROLOL TARTRATE 25MG TABLET PO SCH ×2 (08:44→20:18)
[2021-08-20] MEDS: FUROSEMIDE 40MG TABLET PO SCH (08:44)
[2021-08-20] MEDS: AMLODIPINE 5MG TABLET PO SCH ×2 (08:45→16:35)
[2021-08-20 12:00] VITALS: BP 142/68
[2021-08-20 16:00] VITALS: BP 143/71
[2021-08-20 20:00] VITALS: BP 143/65
[2021-08-21 00:05] VITALS: BP 131/69
[2021-08-21] MEDS: IRON SUCROSE COMPLEX 100 MG/5 ML ML IV SCH ×2 (00:08→22:53)
[2021-08-21 04:00] VITALS: BP 130/80
[2021-08-21] MEDS: HYDRALAZINE HCL 100MG TABLET PO SCH ×3 (05:29→20:34)
[2021-08-21] MEDS: INSULIN LISPRO 100 UNITS/ML SUBCUT SCH ×4 (05:32→20:38)
[2021-08-21] MEDS: BLOOD SUGAR DIAGNOSTIC STRIP TEST SCH ×4 (05:32→20:34)
[2021-08-21 08:00] VITALS: BP 143/66
[2021-08-21] MEDS: METOPROLOL TARTRATE 25MG TABLET PO SCH ×2 (08:29→20:33)
[2021-08-21] MEDS: FUROSEMIDE 40MG TABLET PO SCH (08:29)
[2021-08-21] MEDS: MINOXIDIL 2.5MG TABLET PO SCH ×2 (08:29→20:33)
[2021-08-21] MEDS: AMLODIPINE 5MG TABLET PO SCH ×2 (08:29→17:47)
[2021-08-21 12:00] VITALS: BP 95/57
[2021-08-21 12:33] LABS: HEPATITIS B SURFACE ANTIGEN NEGATIVE
[2021-08-21 16:00] VITALS: BP 118/53
[2021-08-21 20:00] VITALS: BP 143/65
[2021-08-21] MEDS ORDERED: EPOETIN ALFA-EPBX 10,000 UNIT/ML VIAL SUBCUT NR (21:45)
[2021-08-22] VITALS (7 sets, daily range): BP systolic 103–143; BP diastolic 48–60
[2021-08-22] MEDS: HYDRALAZINE HCL 100MG TABLET PO SCH ×3 (05:54→20:42)
[2021-08-22] MEDS: BLOOD SUGAR DIAGNOSTIC STRIP TEST SCH ×4 (05:54→20:41)
[2021-08-22] MEDS: INSULIN LISPRO 100 UNITS/ML SUBCUT SCH ×4 (05:57→20:41)
[2021-08-22] MEDS: MINOXIDIL 2.5MG TABLET PO SCH ×2 (08:22→20:41)
[2021-08-22] MEDS: FUROSEMIDE 40MG TABLET PO SCH (08:22)
[2021-08-22] MEDS: METOPROLOL TARTRATE 25MG TABLET PO SCH ×2 (08:22→20:42)
[2021-08-22] MEDS: AMLODIPINE 5MG TABLET PO SCH ×2 (08:22→17:29)
[2021-08-22] MEDS: IRON SUCROSE COMPLEX 100 MG/5 ML ML IV SCH (20:42)
[2021-08-23] VITALS: BP 142/58
[2021-08-23 04:00] VITALS: BP 144/72
[2021-08-23] MEDS: INSULIN LISPRO 100 UNITS/ML SUBCUT SCH ×4 (05:20→21:19)
[2021-08-23] MEDS: BLOOD SUGAR DIAGNOSTIC STRIP TEST SCH ×4 (05:20→21:00)
[2021-08-23] MEDS: HYDRALAZINE HCL 100MG TABLET PO SCH ×3 (05:22→22:44)
[2021-08-23 08:00] VITALS: BP 115/49
[2021-08-23] MEDS: FUROSEMIDE 40MG TABLET PO SCH (08:39)
[2021-08-23] MEDS: MINOXIDIL 2.5MG TABLET PO SCH ×2 (08:39→21:11)
[2021-08-23] MEDS: FOLIC ACID/VITAMIN B COMP W-C TABLET PO SCH (08:40)
[2021-08-23] MEDS: METOPROLOL TARTRATE 25MG TABLET PO SCH ×2 (08:40→21:11)
[2021-08-23] MEDS: AMLODIPINE 5MG TABLET PO SCH ×2 (08:40→18:27)
[2021-08-23 12:00] VITALS: BP 109/43
[2021-08-23 15:54] VITALS: BP 140/57
[2021-08-23 20:00] VITALS: BP 128/54
[2021-08-23] MEDS ORDERED: EPOETIN ALFA-EPBX 4,000 UNIT/ML VIAL SUBCUT NR (23:30)
[2021-08-24 04:09] VITALS: BP 108/44
[2021-08-24] MEDS: INSULIN LISPRO 100 UNITS/ML SUBCUT SCH ×4 (06:26→20:45)
[2021-08-24] MEDS: BLOOD SUGAR DIAGNOSTIC STRIP TEST SCH ×4 (06:26→20:23)
[2021-08-24] MEDS: HYDRALAZINE HCL 100MG TABLET PO SCH ×3 (06:27→22:00)
[2021-08-24 08:00] VITALS: BP 102/41
[2021-08-24] MEDS: METOPROLOL TARTRATE 25MG TABLET PO SCH ×2 (09:00→20:13)
[2021-08-24] MEDS: AMLODIPINE 5MG TABLET PO SCH ×2 (09:00→16:40)
[2021-08-24] MEDS: MINOXIDIL 2.5MG TABLET PO SCH ×2 (09:00→20:15)
[2021-08-24] MEDS: FOLIC ACID/VITAMIN B COMP W-C TABLET PO SCH (09:05)
[2021-08-24] MEDS: FUROSEMIDE 40MG TABLET PO SCH (09:05)
[2021-08-24 12:00] VITALS: BP 113/48
[2021-08-24 16:00] VITALS: BP 131/58
[2021-08-24 20:00] VITALS: BP 109/49
[2021-08-24] MEDS ORDERED: EPOETIN ALFA-EPBX 4,000 UNIT/ML VIAL SUBCUT SCH (21:00)
[2021-08-24] MEDS: EPOETIN ALFA-EPBX 4,000 UNIT/ML VIAL SUBCUT SCH (21:07)
[2021-08-25] VITALS: BP 133/58
[2021-08-25 04:00] VITALS: BP 116/49
[2021-08-25] MEDS: HYDRALAZINE HCL 100MG TABLET PO SCH ×4 (05:09→21:05)
[2021-08-25] MEDS: BLOOD SUGAR DIAGNOSTIC STRIP TEST SCH ×4 (05:40→21:03)
[2021-08-25] MEDS: INSULIN LISPRO 100 UNITS/ML SUBCUT SCH ×4 (06:10→21:00)
[2021-08-25 08:00] VITALS: BP 120/93
[2021-08-25] MEDS: MINOXIDIL 2.5MG TABLET PO SCH ×2 (09:01→21:06)
[2021-08-25] MEDS: FUROSEMIDE 40MG TABLET PO SCH (09:01)
[2021-08-25] MEDS: AMLODIPINE 5MG TABLET PO SCH ×2 (09:02→17:19)
[2021-08-25] MEDS: FOLIC ACID/VITAMIN B COMP W-C TABLET PO SCH (09:02)
[2021-08-25] MEDS: METOPROLOL TARTRATE 25MG TABLET PO SCH ×2 (09:02→21:05)
[2021-08-25 12:00] VITALS: BP 137/52
[2021-08-25 16:00] VITALS: BP 137/62
[2021-08-25 20:00] VITALS: BP 140/65
[2021-08-25] MEDS: EPOETIN ALFA-EPBX 4,000 UNIT/ML VIAL SUBCUT SCH (21:00)
[2021-08-25] MEDS ORDERED: EPOETIN ALFA-EPBX 4,000 UNIT/ML VIAL SUBCUT SCH (23:45)
[2021-08-26] VITALS: BP 95/50
[2021-08-26 04:00] VITALS: BP 136/59
[2021-08-26] MEDS: BLOOD SUGAR DIAGNOSTIC STRIP TEST SCH ×2 (05:50→12:21)
[2021-08-26] MEDS: INSULIN LISPRO 100 UNITS/ML SUBCUT SCH ×2 (05:52→12:10)
[2021-08-26] MEDS: HYDRALAZINE HCL 100MG TABLET PO SCH (06:53)
[2021-08-26 08:00] VITALS: BP 121/49
[2021-08-26] MEDS: FOLIC ACID/VITAMIN B COMP W-C TABLET PO SCH (08:53)
[2021-08-26] MEDS: MINOXIDIL 2.5MG TABLET PO SCH (08:53)
[2021-08-26] MEDS: AMLODIPINE 5MG TABLET PO SCH (08:53)
[2021-08-26] MEDS: FUROSEMIDE 40MG TABLET PO SCH (08:54)
[2021-08-26] MEDS: METOPROLOL TARTRATE 25MG TABLET PO SCH (08:54)
[2021-08-26 10:41] LABS: BASOPHILS % 0.3 % (0.0-2.0); EOSINOPHILS % 5.1 % (0.0-5.0); HEMATOCRIT. 23.7 % (36.0-48.0); HEMOGLOBIN. 7.9 g/dL (12.0-16.0); LYMPHOCYTES % 17.5 % (20.0-50.0); MEAN CORPUSCULAR HEMOGLOBIN 29.1 pg (28.0-32.0); MEAN CORPUSCULAR VOLUME 87.6 fL (81.0-99.0); MEAN PLATELET VOLUME 8.9 fl (7.4-10.4); NEUTROPHILS % 72.1 % (40.0-76.0); PLATELET 237 x1000/uL (130-400); RED CELL DISTRIBUTION WIDTH 16.2 % (11.6-14.6)
[2021-08-26 12:00] VITALS: BP 97/55
[2021-08-26 12:24] VITALS: BP 97/55
[2021-08-26] MEDS ORDERED: EPOETIN ALFA-EPBX 4,000 UNIT/ML VIAL SUBCUT SCH (21:00)
== END 2021-08-26 15:00 | DRG 137 ==
LOC: ER 13:34 → 7WST 15:58 → ENRESERV 08-17 01:40 → 7EST 08-24 05:05
PROVIDERS: ADMIT Internal Medicine; ATTEND Internal Medicine
PROC: 5A1D70Z Performance of Urinary Filtration, Intermittent, Less than 6 Hours Per Day (ICD-10-PCS; principal; 2021-08-20)
PROC: 5A1D70Z Performance of Urinary Filtration, Intermittent, Less than 6 Hours Per Day (ICD-10-PCS; 2021-08-22)
PROC: 5A1D70Z Performance of Urinary Filtration, Intermittent, Less than 6 Hours Per Day (ICD-10-PCS; 2021-08-24)
PROC: 5A1D70Z Performance of Urinary Filtration, Intermittent, Less than 6 Hours Per Day (ICD-10-PCS; 2021-08-26)
DX: U07.1 COVID-19 (principal); E43 Unspecified severe protein-calorie malnutrition; I12.0 Hypertensive chronic kidney disease with stage 5 chronic kidney disease or end stage renal disease; I31.3 Pericardial effusion (noninflammatory); D63.1 Anemia in chronic kidney disease; J90 Pleural effusion, not elsewhere classified; N18.6 End stage renal disease; E11.22 Type 2 diabetes mellitus with diabetic chronic kidney disease; D64.9 Anemia, unspecified; D72.819 Decreased white blood cell count, unspecified; E87.70 Fluid overload, unspecified; E87.8 Other disorders of electrolyte and fluid balance, not elsewhere classified; E87.5 Hyperkalemia; E83.52 Hypercalcemia; Z68.24 Body mass index [BMI] 24.0-24.9, adult; Z99.2 Dependence on renal dialysis
CPT/HCPCS: 36415; 71045; 80048; 80069; 82962; 83036; 83880; 85025; 86705; 86706; 86709; 86803; 87340; 87426; 93005; 93306; 99285; J0885; J1815; J2405; U0003; U0005

== ENCOUNTER 2022-01-03 09:17 | Inpatient (IN) | payer MEDICAID, OTHER ==
[~2022-01-03] VITALS: Ht 157.5 cm; Wt 48.1 kg
[~2022-01-03 09:17] MED LIST changes: -LINE600T14 PO
[2022-01-03 09:48] LABS: BASOPHILS % 0.3 % (0.0-2.0); EOSINOPHILS % 4.7 % (0.0-5.0); HEMATOCRIT. 31.5 % (36.0-48.0); HEMOGLOBIN. 10.7 g/dL (12.0-16.0); LYMPHOCYTES % 33.6 % (20.0-50.0); MEAN CORPUSCULAR HEMOGLOBIN 28.6 pg (28.0-32.0); MEAN CORPUSCULAR VOLUME 84.4 fL (81.0-99.0); MONOCYTES % 7.2 % (2.0-8.0); NEUTROPHILS % 54.2 % (40.0-76.0); PLATELET 248 x1000/uL (130-400); RED BLOOD CELL COUNT 3.73 mill/uL (4.2-5.4); RED CELL DISTRIBUTION WIDTH 16.1 % (11.6-14.6)
[2022-01-03 09:52] LABS: CHLORIDE 106 mEq/L (98-107)
[2022-01-03 13:09] LABS: CLARITY URINE CLOUDY (CLEAR); COLOR URINE YELLOW (YELLOW); KETONES URINE TRACE (NEGATIVE); LEUKOCYTE ESTERASE URINE 1+ (NEGATIVE); NITRITE URINE NEGATIVE (NEGATIVE); OCCULT BLOOD URINE TRACE (NEGATIVE); PROTEIN URINE 4+ (NEGATIVE); SPECIFIC GRAVITY URINE 1.024 (1.005-1.030); UROBILINOGEN URINE 0.2 E.U./dL (0.2-1.0)
[2022-01-03] MEDS: FUROSEMIDE 40MG TABLET PO SCH (15:15)
[2022-01-03] MEDS ORDERED: CEFTRIAXONE 1 G PREMIX 50 ML IV ONE (16:00)
[2022-01-03 22:00] VITALS: BP 165/72
[2022-01-03] MEDS ORDERED: CEFTRIAXONE 1 G PREMIX 50 ML IV SCH (23:45)
[2022-01-03] MEDS ORDERED: ZOLPIDEM TARTRATE 5MG TABLET PO PRN (23:45)
[2022-01-03] MEDS ORDERED: ONDANSETRON HCL 4MG/2ML INJ IV PRN (23:45)
[2022-01-04] MEDS: LISINOPRIL 10MG TABLET PO SCH ×3 (00:11→20:17)
[2022-01-04] MEDS: CEFTRIAXONE 1,000 MG in DEXTROSE 5% WATER 50 ML IV SCH (01:36)
[2022-01-04 02:00] VITALS: BP 140/67
[2022-01-04] MEDS ORDERED: PNEUMOCOCCAL 23-VAL P-SAC VAC 0.5 ML IM ONE (03:45)
[2022-01-04 08:00] VITALS: BP 165/81
[2022-01-04] MEDS ORDERED: DEXTROSE 50% WATER 50ML SYRINGE IV PRN (08:15)
[2022-01-04] MEDS: GLIPIZIDE XL 2.5MG TABLET PO SCH ×2 (09:00→19:01)
[2022-01-04] MEDS: AMLODIPINE 10MG TABLET PO SCH (09:30)
[2022-01-04] MEDS: FUROSEMIDE 40MG TABLET PO SCH (09:30)
[2022-01-04] MEDS: FERROUS SULFATE 325MG TABLET PO SCH ×3 (09:31→18:41)
[2022-01-04 09:41] LABS: BASOPHILS % 0.2 % (0.0-2.0); EOSINOPHILS % 4.4 % (0.0-5.0); HEMATOCRIT. 27.9 % (36.0-48.0); HEMOGLOBIN. 9.7 g/dL (12.0-16.0); LYMPHOCYTES % 27.8 % (20.0-50.0); MEAN CORPUSCULAR HEMOGLOBIN 28.9 pg (28.0-32.0); MEAN CORPUSCULAR VOLUME 83.6 fL (81.0-99.0); MEAN PLATELET VOLUME 8.3 fl (7.4-10.4); MONOCYTES % 4.4 % (2.0-8.0); NEUTROPHILS % 63.2 % (40.0-76.0); PLATELET 207 x1000/uL (130-400); RED BLOOD CELL COUNT 3.34 mill/uL (4.2-5.4); RED CELL DISTRIBUTION WIDTH 16.1 % (11.6-14.6)
[2022-01-04 12:00] VITALS: BP 179/76
[2022-01-04] MEDS: BLOOD SUGAR DIAGNOSTIC STRIP TEST SCH ×3 (12:45→20:24)
[2022-01-04] MEDS: INSULIN LISPRO 100 UNITS/ML SUBCUT SCH ×3 (13:46→20:25)
[2022-01-04] MEDS: CLONIDINE 0.1MG TABLET PO PRN (14:20)
[2022-01-04 16:00] VITALS: BP 155/73
[2022-01-04 20:03] VITALS: BP 156/75
[2022-01-05] VITALS (7 sets, daily range): BP systolic 124–190; BP diastolic 63–79
[2022-01-05] MEDS: CEFTRIAXONE 1,000 MG in DEXTROSE 5% WATER 50 ML IV SCH (00:46)
[2022-01-05] MEDS: CLONIDINE 0.1MG TABLET PO PRN ×2 (04:47→13:07)
[2022-01-05] MEDS: BLOOD SUGAR DIAGNOSTIC STRIP TEST SCH ×4 (06:28→21:10)
[2022-01-05] MEDS: INSULIN LISPRO 100 UNITS/ML SUBCUT SCH ×4 (07:50→21:26)
[2022-01-05] MEDS: FERROUS SULFATE 325MG TABLET PO SCH ×3 (08:49→17:13)
[2022-01-05] MEDS: LISINOPRIL 10MG TABLET PO SCH ×2 (08:49→21:23)
[2022-01-05] MEDS: FUROSEMIDE 40MG TABLET PO SCH ×2 (08:49→17:11)
[2022-01-05] MEDS: GLIPIZIDE XL 2.5MG TABLET PO SCH (08:50)
[2022-01-05] MEDS: AMLODIPINE 10MG TABLET PO SCH (08:50)
[2022-01-05] MEDS ORDERED: GLIP2.5T3 MT (11:19)
[2022-01-05] MEDS ORDERED: LISI10TA26 PO (11:19)
[2022-01-05] MEDS ORDERED: FURO40TA5 PO (11:19)
[2022-01-05] MEDS ORDERED: HYDRALAZINE 20MG/ML VIAL IV PRN (14:30)
[2022-01-05 16:08] LABS: BASOPHILS % 0.2 % (0.0-2.0); EOSINOPHILS % 4.7 % (0.0-5.0); HEMATOCRIT. 27.7 % (36.0-48.0); HEMOGLOBIN. 9.3 g/dL (12.0-16.0); MEAN CORPUSCULAR HEMOGLOBIN 29.2 pg (28.0-32.0); MEAN CORPUSCULAR VOLUME 86.7 fL (81.0-99.0); MEAN PLATELET VOLUME 8.4 fl (7.4-10.4); MONOCYTES % 5.7 % (2.0-8.0); NEUTROPHILS % 52.4 % (40.0-76.0); PLATELET 201 x1000/uL (130-400); RED BLOOD CELL COUNT 3.19 mill/uL (4.2-5.4); RED CELL DISTRIBUTION WIDTH 15.9 % (11.6-14.6)
[2022-01-05 16:34] LABS: CHLORIDE 108 mEq/L (98-107)
[2022-01-05] MEDS: IRON SUCROSE COMPLEX 100 MG/5 ML ML IV SCH (17:11)
[2022-01-05] MEDS ORDERED: EPOETIN ALFA 4000UNITS/ML VIAL SUBCUT SCH (21:00)
[2022-01-06] VITALS: BP 152/65
[2022-01-06] MEDS: CEFTRIAXONE 1,000 MG in DEXTROSE 5% WATER 50 ML IV SCH (01:43)
[2022-01-06 03:27] LABS: HEPATITIS B SURFACE ANTIGEN NEGATIVE
[2022-01-06 04:00] VITALS: BP 162/71
[2022-01-06] MEDS: INSULIN LISPRO 100 UNITS/ML SUBCUT SCH ×2 (06:51→14:06)
[2022-01-06] MEDS: BLOOD SUGAR DIAGNOSTIC STRIP TEST SCH ×2 (06:51→12:20)
[2022-01-06] MEDS ORDERED: EPOETIN ALFA 4000UNITS/ML VIAL SUBCUT ONE (09:00)
[2022-01-06] MEDS ORDERED: IRON SUCROSE COMPLEX 100 MG/5 ML ML IV ONE (09:00)
[2022-01-06] MEDS: AMLODIPINE 10MG TABLET PO SCH (09:33)
[2022-01-06] MEDS: LISINOPRIL 10MG TABLET PO SCH (09:33)
[2022-01-06] MEDS: FERROUS SULFATE 325MG TABLET PO SCH ×2 (09:33→14:06)
[2022-01-06] MEDS: FUROSEMIDE 40MG TABLET PO SCH ×2 (09:33→17:24)
[2022-01-06] MEDS: GLIPIZIDE XL 2.5MG TABLET PO SCH (09:33)
[2022-01-06] MEDS ORDERED: HYDRALAZINE HCL 50MG TABLET PO SCH (17:00)
[2022-01-06] MEDS: IRON SUCROSE COMPLEX 100 MG/5 ML ML IV SCH (17:24)
[2022-01-06 17:41] VITALS: BP 155/54
== END 2022-01-06 19:13 | disposition home or self-care (01) | DRG 249 ==
LOC: ER 09:17 → 6WST 14:56 → EDBEDREQ 18:58 → EDBEDREQTM 18:58 → ENRESERV 20:27
PROVIDERS: ADMIT Internal Medicine; ATTEND Internal Medicine
PROC: 5A1D70Z Performance of Urinary Filtration, Intermittent, Less than 6 Hours Per Day (ICD-10-PCS; principal; 2022-01-05)
DX: K52.9 Noninfective gastroenteritis and colitis, unspecified (principal); N17.9 Acute kidney failure, unspecified; E11.22 Type 2 diabetes mellitus with diabetic chronic kidney disease; K76.0 Fatty (change of) liver, not elsewhere classified; I12.0 Hypertensive chronic kidney disease with stage 5 chronic kidney disease or end stage renal disease; D64.9 Anemia, unspecified; E87.70 Fluid overload, unspecified; N18.6 End stage renal disease; N39.0 Urinary tract infection, site not specified; Z79.899 Other long term (current) drug therapy; Z99.2 Dependence on renal dialysis; Z86.79 Personal history of other diseases of the circulatory system
CPT/HCPCS: 36415; 71045; 76700; 80048; 80053; 80061; 80076; 81003; 82550; 82962; 83036; 84145; 84443; 84484; 85025; 86705; 86709; 86803; 87340; 93005; 99285; J0360; J0696; J0885; J1815; J2405; J7060

== ENCOUNTER 2022-02-28 11:06 | Inpatient (IN) | payer MEDICAID, OTHER ==
[~2022-02-28] VITALS: Ht 154.9 cm; Wt 49.9 kg
[~2022-02-28 11:06] MED LIST changes: +FURO40TA5 PO; +GLIP2.5T3 MT; -HYDR-4135 PO; +LISI10TA26 PO; -METO25TA6 PO
[2022-02-28 12:32] LABS: HEMATOCRIT. 27.2 % (36.0-48.0); HEMOGLOBIN. 9.2 g/dL (12.0-16.0); MEAN CORPUSCULAR VOLUME 85.7 fL (81.0-99.0); MEAN PLATELET VOLUME 9.4 fl (7.4-10.4); PLATELET 134 x1000/uL (130-400); RED BLOOD CELL COUNT 3.17 mill/uL (4.2-5.4); RED CELL DISTRIBUTION WIDTH 14.3 % (11.6-14.6)
[2022-02-28 12:49] LABS: CHLORIDE 103 mEq/L (98-107)
[2022-02-28] MEDS ORDERED: CEFTRIAXONE 1 G PREMIX 50 ML IV NR (14:00)
[2022-02-28] MEDS ORDERED: ACETAMINOPHEN 325MG TABLET PO ONE (14:00)
[2022-02-28] MEDS: VANCOMYCIN 1G PREMIX 200 ML IV NR ×2 (14:00→14:58)
[2022-02-28 14:16] LABS: PLATELET ESTIMATE NORMAL
[2022-02-28] MEDS ORDERED: LIDOCAINE HCL 1% 50ML VIAL (10MG/ML) ONE (14:57)
[2022-02-28 15:00] LABS: INR 1.1; PROTHROMBIN TIME 11.3 sec (9.6-11.0)
[2022-02-28] MEDS: BENAZEPRIL 10MG TABLET PO SCH ×2 (15:15→21:33)
[2022-02-28] MEDS ORDERED: ACETAMINOPHEN 325MG TABLET PO NR (15:30)
[2022-02-28 19:45] VITALS: BP 171/85
[2022-02-28 20:00] VITALS: BP 171/85
[2022-02-28] MEDS ORDERED: DEXTROSE 50% WATER 50ML SYRINGE IV PRN (20:45)
[2022-02-28] MEDS ORDERED: EPOETIN ALFA-EPBX 4,000 UNIT/ML VIAL SUBCUT NR (21:00)
[2022-02-28] MEDS: INSULIN LISPRO 100 UNITS/ML SUBCUT SCH (21:00)
[2022-02-28] MEDS: BLOOD SUGAR DIAGNOSTIC STRIP TEST SCH (21:28)
[2022-02-28] MEDS: HEPARIN 5000 UNITS/ML VIAL SUBCUT SCH (21:33)
[2022-02-28] MEDS: CLONIDINE 0.2MG TABLET PO PRN (21:33)
[2022-02-28] MEDS: PIPERACILLIN/TAZOBACTAM 3.375 G in DEXTROSE 5% WATER 50 ML IV SCH (22:53)
[2022-03-01] VITALS: BP 180/86
[2022-03-01] MEDS: CLONIDINE 0.2MG TABLET PO PRN (01:52)
[2022-03-01 04:00] VITALS: BP 148/50
[2022-03-01] MEDS: ACETAMINOPHEN 325MG TABLET PO PRN (04:15)
[2022-03-01 06:59] LABS: HEMATOCRIT 25.5 % (36.0-48.0); HEMOGLOBIN 8.5 g/dL (12.0-16.0); MEAN CORPUSCULAR HEMOGLOBIN 28.5 pg (28.0-32.0); MEAN CORPUSCULAR VOLUME 85.3 fL (81.0-99.0); PLATELET 114 x1000/uL (130-400); RED BLOOD CELL COUNT 2.99 mill/uL (4.2-5.4); RED CELL DISTRIBUTION WIDTH 14.3 % (11.6-14.6)
[2022-03-01] MEDS: BLOOD SUGAR DIAGNOSTIC STRIP TEST SCH ×4 (07:40→21:05)
[2022-03-01 08:00] VITALS: BP 141/69
[2022-03-01] MEDS: BENAZEPRIL 10MG TABLET PO SCH ×2 (08:09→17:27)
[2022-03-01] MEDS: PIPERACILLIN/TAZOBACTAM 3.375 G in DEXTROSE 5% WATER 50 ML IV SCH ×2 (08:09→21:04)
[2022-03-01] MEDS: INSULIN LISPRO 100 UNITS/ML SUBCUT SCH ×4 (08:11→21:04)
[2022-03-01] MEDS: HEPARIN 5000 UNITS/ML VIAL SUBCUT SCH ×2 (09:00→21:05)
[2022-03-01 12:00] VITALS: BP 126/57
[2022-03-01] MEDS ORDERED: VANCOMYCIN 750 MG in DEXT 5% WATER 250 ML IV SCH (15:00)
[2022-03-01 16:00] VITALS: BP 131/77
[2022-03-01 20:00] VITALS: BP 123/72
[2022-03-02] VITALS (7 sets, daily range): BP systolic 130–183; BP diastolic 60–70
[2022-03-02] MEDS: ACETAMINOPHEN 325MG TABLET PO PRN ×2 (01:05→17:10)
[2022-03-02] MEDS: CLONIDINE 0.2MG TABLET PO PRN (01:05)
[2022-03-02 06:41] LABS: BASOPHILS % 0.3 % (0.0-2.0); EOSINOPHILS % 0.8 % (0.0-5.0); HEMATOCRIT. 24.9 % (36.0-48.0); HEMOGLOBIN. 8.6 g/dL (12.0-16.0); MEAN CORPUSCULAR HEMOGLOBIN 29.4 pg (28.0-32.0); MEAN CORPUSCULAR VOLUME 84.8 fL (81.0-99.0); MEAN PLATELET VOLUME 10.6 fl (7.4-10.4); MONOCYTES % 6.7 % (2.0-8.0); NEUTROPHILS % 79.2 % (40.0-76.0); PLATELET 114 x1000/uL (130-400); RED BLOOD CELL COUNT 2.93 mill/uL (4.2-5.4); RED CELL DISTRIBUTION WIDTH 14.5 % (11.6-14.6)
[2022-03-02] MEDS: BLOOD SUGAR DIAGNOSTIC STRIP TEST SCH ×4 (07:40→21:02)
[2022-03-02] MEDS: BENAZEPRIL 10MG TABLET PO SCH ×2 (09:07→17:10)
[2022-03-02] MEDS: HEPARIN 5000 UNITS/ML VIAL SUBCUT SCH ×2 (09:07→21:05)
[2022-03-02] MEDS: INSULIN LISPRO 100 UNITS/ML SUBCUT SCH ×4 (09:09→21:05)
[2022-03-02] MEDS: PIPERACILLIN/TAZOBACTAM 3.375 G in DEXTROSE 5% WATER 50 ML IV SCH (09:11)
[2022-03-02] MEDS: POLYVINYL ALCOHOL OPHTH DROPS 15ML BOTHEYE PRN ×3 (09:54→18:21)
[2022-03-02] MEDS ORDERED: IRON SUCROSE COMPLEX 100 MG/5 ML ML IV NR (22:30)
[2022-03-03] VITALS (8 sets, daily range): BP systolic 145–189; BP diastolic 50–83
[2022-03-03] MEDS ORDERED: EPOETIN ALFA-EPBX 4,000 UNIT/ML VIAL SUBCUT NR (01:00)
[2022-03-03] MEDS: CLONIDINE 0.2MG TABLET PO PRN (04:22)
[2022-03-03] MEDS: POLYVINYL ALCOHOL OPHTH DROPS 15ML BOTHEYE PRN ×2 (04:24→09:02)
[2022-03-03] MEDS: BLOOD SUGAR DIAGNOSTIC STRIP TEST SCH ×4 (06:16→20:11)
[2022-03-03] MEDS ORDERED: LIDOCAINE HCL/PF 1% 10 MG/ML 5ML VIAL ONE (07:11)
[2022-03-03] MEDS: IRON SUCROSE COMPLEX 100 MG/5 ML ML IV SCH (08:57)
[2022-03-03] MEDS: HEPARIN 5000 UNITS/ML VIAL SUBCUT SCH ×2 (08:58→20:16)
[2022-03-03] MEDS: INSULIN LISPRO 100 UNITS/ML SUBCUT SCH ×4 (08:59→20:11)
[2022-03-03] MEDS: BENAZEPRIL 10MG TABLET PO SCH ×4 (09:00→17:14)
[2022-03-03 10:13] LABS: BASOPHILS % 0.2 % (0.0-2.0); EOSINOPHILS % 0.8 % (0.0-5.0); HEMATOCRIT. 25.5 % (36.0-48.0); HEMOGLOBIN. 8.3 g/dL (12.0-16.0); LYMPHOCYTES % 9.5 % (20.0-50.0); MEAN CORPUSCULAR HEMOGLOBIN 28.6 pg (28.0-32.0); MEAN CORPUSCULAR VOLUME 87.4 fL (81.0-99.0); MEAN PLATELET VOLUME 9.6 fl (7.4-10.4); MONOCYTES % 6.5 % (2.0-8.0); PLATELET 144 x1000/uL (130-400); RED BLOOD CELL COUNT 2.92 mill/uL (4.2-5.4); RED CELL DISTRIBUTION WIDTH 14.9 % (11.6-14.6)
[2022-03-03] MEDS: ERYTHROMYCIN BASE 0.5% OPHTH OINT 3.5GM BOTHEYE SCH ×3 (12:40→20:15)
[2022-03-03] MEDS: AMLODIPINE 5MG TABLET PO SCH (14:17)
[2022-03-03] MEDS ORDERED: EPOETIN ALFA-EPBX 4,000 UNIT/ML VIAL SUBCUT ONE (20:00)
[2022-03-03] MEDS ORDERED: EPOETIN ALFA-EPBX 4,000 UNIT/ML VIAL SUBCUT SCH (21:00)
[2022-03-03] MEDS ORDERED: VANCOMYCIN 500MG PREMIX 100 ML IV NR (21:00)
[2022-03-03] MEDS: ACETAMINOPHEN 325MG TABLET PO PRN (22:03)
[2022-03-04] VITALS (7 sets, daily range): BP systolic 125–176; BP diastolic 65–81
[2022-03-04] MEDS: BLOOD SUGAR DIAGNOSTIC STRIP TEST SCH ×4 (06:38→20:40)
[2022-03-04] MEDS: IRON SUCROSE COMPLEX 100 MG/5 ML ML IV SCH (08:40)
[2022-03-04] MEDS: HEPARIN 5000 UNITS/ML VIAL SUBCUT SCH ×2 (08:42→20:41)
[2022-03-04] MEDS: BENAZEPRIL 10MG TABLET PO SCH ×2 (08:42→17:22)
[2022-03-04] MEDS: ACETAMINOPHEN 325MG TABLET PO PRN (08:43)
[2022-03-04] MEDS: ERYTHROMYCIN BASE 0.5% OPHTH OINT 3.5GM BOTHEYE SCH ×4 (08:43→20:46)
[2022-03-04] MEDS: AMLODIPINE 5MG TABLET PO SCH (08:43)
[2022-03-04] MEDS: INSULIN LISPRO 100 UNITS/ML SUBCUT SCH ×4 (08:48→20:40)
[2022-03-04 10:07] LABS: BASOPHILS % 0.6 % (0.0-2.0); EOSINOPHILS % 0.8 % (0.0-5.0); HEMATOCRIT. 27.6 % (36.0-48.0); LYMPHOCYTES % 8.4 % (20.0-50.0); MEAN CORPUSCULAR HEMOGLOBIN 28.8 pg (28.0-32.0); MEAN CORPUSCULAR VOLUME 88.8 fL (81.0-99.0); MEAN PLATELET VOLUME 9.9 fl (7.4-10.4); MONOCYTES % 7.1 % (2.0-8.0); NEUTROPHILS % 83.1 % (40.0-76.0); PLATELET 165 x1000/uL (130-400); RED BLOOD CELL COUNT 3.11 mill/uL (4.2-5.4); RED CELL DISTRIBUTION WIDTH 15.1 % (11.6-14.6)
[2022-03-04] MEDS: ONDANSETRON HCL 4MG/2ML INJ IV PRN (16:33)
[2022-03-05 00:48] VITALS: BP 162/64
[2022-03-05 04:00] VITALS: BP 157/66
[2022-03-05] MEDS: BLOOD SUGAR DIAGNOSTIC STRIP TEST SCH ×4 (06:42→20:31)
[2022-03-05 07:15] LABS: BASOPHILS % 0.2 % (0.0-2.0); EOSINOPHILS % 0.3 % (0.0-5.0); HEMATOCRIT. 25.3 % (36.0-48.0); HEMOGLOBIN. 8.3 g/dL (12.0-16.0); LYMPHOCYTES % 9.3 % (20.0-50.0); MEAN CORPUSCULAR HEMOGLOBIN 28.2 pg (28.0-32.0); MEAN CORPUSCULAR VOLUME 85.8 fL (81.0-99.0); MEAN PLATELET VOLUME 9.7 fl (7.4-10.4); MONOCYTES % 8.8 % (2.0-8.0); NEUTROPHILS % 81.4 % (40.0-76.0); PLATELET 197 x1000/uL (130-400); RED BLOOD CELL COUNT 2.95 mill/uL (4.2-5.4); RED CELL DISTRIBUTION WIDTH 14.7 % (11.6-14.6)
[2022-03-05 08:00] VITALS: BP 157/64
[2022-03-05] MEDS ORDERED: EPOETIN ALFA-EPBX 4,000 UNIT/ML VIAL SUBCUT NR ×2 (08:15→21:00)
[2022-03-05] MEDS: AMLODIPINE 5MG TABLET PO SCH (09:00)
[2022-03-05] MEDS: BENAZEPRIL 10MG TABLET PO SCH ×2 (09:00→17:00)
[2022-03-05] MEDS: INSULIN LISPRO 100 UNITS/ML SUBCUT SCH ×4 (09:12→20:31)
[2022-03-05] MEDS: IRON SUCROSE COMPLEX 100 MG/5 ML ML IV SCH (09:13)
[2022-03-05] MEDS: HEPARIN 5000 UNITS/ML VIAL SUBCUT SCH ×2 (09:13→20:32)
[2022-03-05] MEDS: ERYTHROMYCIN BASE 0.5% OPHTH OINT 3.5GM BOTHEYE SCH ×4 (09:14→20:31)
[2022-03-05] MEDS ORDERED: THROMBIN (BOVINE) 5000 UNITS/VIAL TOP ONE (09:29)
[2022-03-05] MEDS ORDERED: POLYMYXIN B SULFATE 500000 UNITS/VIAL ONE (09:29)
[2022-03-05] MEDS ORDERED: HEPARIN SODIUM 1,000 UNIT/1ML VIAL IV ONE (09:30)
[2022-03-05] MEDS ORDERED: BACITRACIN 15GM TUBE TOP ONE (09:30)
[2022-03-05] MEDS ORDERED: LIDOCAINE HCL 1% 50ML VIAL (10MG/ML) ONE (09:30)
[2022-03-05] MEDS ORDERED: BUPIVACAINE HCL/PF 0.5% (5MG/ML) 10ML ONE (09:30)
[2022-03-05] MEDS: ONDANSETRON HCL 4MG/2ML INJ IV PRN (11:07)
[2022-03-05] MEDS ORDERED: FENTANYL CITRATE/PF 50MCG/ML 2ML VIAL ONE (11:35)
[2022-03-05] MEDS ORDERED: ETOMIDATE 2MG/ML 10ML VIAL IV ONE (11:35)
[2022-03-05] MEDS ORDERED: DEXAMETHASONE 4MG/ML 1ML VIAL ONE (11:35)
[2022-03-05] MEDS ORDERED: MIDAZOLAM HCL 2 MG/2 ML VIAL ONE (11:36)
[2022-03-05] MEDS ORDERED: PROPOFOL 200MG/20ML VIAL IV ONE (11:47)
[2022-03-05] MEDS ORDERED: MEPERIDINE HCL/PF 25MG/ML CPJ IV PRN (12:15)
[2022-03-05] MEDS ORDERED: LABETALOL 5MG/ML SYR 20 MG/4 ML SYRINGE IV PRN (12:15)
[2022-03-05] MEDS ORDERED: KETOROLAC 30MG/ML VIAL IV PRN (12:15)
[2022-03-05] MEDS ORDERED: ROPIVACAINE HCL 10MG/ML 20 ML VIAL EPI ONE (12:15)
[2022-03-05] MEDS ORDERED: HYDROMORPHONE HCL/PF 2MG/ML CPJ IV PRN (12:15)
[2022-03-05] MEDS ORDERED: ONDANSETRON HCL 4MG/2ML INJ IV PRN (12:15)
[2022-03-05] MEDS: CLONIDINE 0.2MG TABLET PO PRN (14:07)
[2022-03-05 16:00] VITALS: BP 158/69
[2022-03-05 18:47] LABS: HEPATITIS B SURFACE ANTIGEN NEGATIVE
[2022-03-05 20:29] VITALS: BP 156/66
[2022-03-06] VITALS (7 sets, daily range): BP systolic 124–139; BP diastolic 42–79
[2022-03-06] MEDS: BLOOD SUGAR DIAGNOSTIC STRIP TEST SCH ×4 (06:46→20:02)
[2022-03-06 07:22] LABS: BASOPHILS % 0.3 % (0.0-2.0); EOSINOPHILS % 0.3 % (0.0-5.0); HEMOGLOBIN. 7.8 g/dL (12.0-16.0); LYMPHOCYTES % 9.1 % (20.0-50.0); MEAN CORPUSCULAR HEMOGLOBIN 28.4 pg (28.0-32.0); MEAN CORPUSCULAR VOLUME 86.8 fL (81.0-99.0); MEAN PLATELET VOLUME 9.2 fl (7.4-10.4); MONOCYTES % 5.8 % (2.0-8.0); NEUTROPHILS % 84.5 % (40.0-76.0); PLATELET 180 x1000/uL (130-400); RED BLOOD CELL COUNT 2.76 mill/uL (4.2-5.4); RED CELL DISTRIBUTION WIDTH 14.9 % (11.6-14.6)
[2022-03-06] MEDS: HEPARIN 5000 UNITS/ML VIAL SUBCUT SCH ×2 (09:14→20:14)
[2022-03-06] MEDS: ONDANSETRON HCL 4MG/2ML INJ IV PRN (09:14)
[2022-03-06] MEDS: IRON SUCROSE COMPLEX 100 MG/5 ML ML IV SCH (09:14)
[2022-03-06] MEDS: ERYTHROMYCIN BASE 0.5% OPHTH OINT 3.5GM BOTHEYE SCH ×4 (09:14→20:15)
[2022-03-06] MEDS: INSULIN LISPRO 100 UNITS/ML SUBCUT SCH ×4 (09:15→20:02)
[2022-03-06] MEDS: BENAZEPRIL 10MG TABLET PO SCH ×2 (10:57→16:55)
[2022-03-06] MEDS: AMLODIPINE 5MG TABLET PO SCH (10:58)
[2022-03-07] VITALS: BP 136/78
[2022-03-07 04:00] VITALS: BP 111/71
[2022-03-07] MEDS: BLOOD SUGAR DIAGNOSTIC STRIP TEST SCH ×5 (06:10→22:30)
[2022-03-07 06:31] LABS: HEMATOCRIT. 24.2 % (36.0-48.0); HEMOGLOBIN. 7.6 g/dL (12.0-16.0); MEAN CORPUSCULAR HEMOGLOBIN 28.1 pg (28.0-32.0); MEAN CORPUSCULAR VOLUME 89.5 fL (81.0-99.0); MEAN PLATELET VOLUME 9.7 fl (7.4-10.4); PLATELET 178 x1000/uL (130-400); RED CELL DISTRIBUTION WIDTH 15.2 % (11.6-14.6)
[2022-03-07 08:00] VITALS: BP 115/40
[2022-03-07] MEDS ORDERED: LIDOCAINE HCL 1% 10 MG/ML 10ML VIAL ONE (08:35)
[2022-03-07] MEDS: BENAZEPRIL 10MG TABLET PO SCH ×2 (09:00→18:52)
[2022-03-07] MEDS: AMLODIPINE 5MG TABLET PO SCH (09:00)
[2022-03-07] MEDS: IRON SUCROSE COMPLEX 100 MG/5 ML ML IV SCH (09:31)
[2022-03-07] MEDS: HEPARIN 5000 UNITS/ML VIAL SUBCUT SCH ×2 (09:31→21:58)
[2022-03-07] MEDS: ERYTHROMYCIN BASE 0.5% OPHTH OINT 3.5GM BOTHEYE SCH ×4 (09:34→21:59)
[2022-03-07] MEDS: INSULIN LISPRO 100 UNITS/ML SUBCUT SCH ×4 (09:35→21:00)
[2022-03-07] MEDS: ONDANSETRON HCL 4MG/2ML INJ IV PRN (09:55)
[2022-03-07 12:00] VITALS: BP 120/43
[2022-03-07] MEDS ORDERED: VANCOMYCIN 750MG PREMIX 150 ML IV SCH (14:00)
[2022-03-07 16:00] VITALS: BP 130/55
[2022-03-07 20:00] VITALS: BP 158/76
[2022-03-07] MEDS ORDERED: EPOETIN ALFA-EPBX 4,000 UNIT/ML VIAL SUBCUT SCH (21:00)
[2022-03-07] MEDS: MIRTAZAPINE 15MG TABLET PO SCH (21:00)
[2022-03-07] MEDS ORDERED: EPOETIN ALFA-EPBX 4,000 UNIT/ML VIAL SUBCUT NR (21:00)
[2022-03-07] MEDS: METOCLOPRAMIDE HCL 5MG TABLET PO SCH (23:38)
[2022-03-08] VITALS (7 sets, daily range): BP systolic 100–164; BP diastolic 32–65
[2022-03-08] MEDS: METOCLOPRAMIDE HCL 5MG TABLET PO SCH ×3 (05:17→16:49)
[2022-03-08 08:01] LABS: HEMATOCRIT. 24.3 % (36.0-48.0); MEAN CORPUSCULAR HEMOGLOBIN 28.1 pg (28.0-32.0); MEAN CORPUSCULAR VOLUME 85.5 fL (81.0-99.0); MEAN PLATELET VOLUME 9.9 fl (7.4-10.4); PLATELET 118 x1000/uL (130-400); RED BLOOD CELL COUNT 2.84 mill/uL (4.2-5.4); RED CELL DISTRIBUTION WIDTH 14.6 % (11.6-14.6)
[2022-03-08] MEDS ORDERED: LIDOCAINE HCL 1% 10 MG/ML 10ML VIAL ONE (08:54)
[2022-03-08] MEDS: HEPARIN 5000 UNITS/ML VIAL SUBCUT SCH ×2 (09:39→20:52)
[2022-03-08] MEDS: BENAZEPRIL 10MG TABLET PO SCH ×2 (09:42→16:49)
[2022-03-08] MEDS: AMLODIPINE 5MG TABLET PO SCH (09:42)
[2022-03-08] MEDS: INSULIN LISPRO 100 UNITS/ML SUBCUT SCH ×4 (09:43→21:00)
[2022-03-08] MEDS: ACETAMINOPHEN 325MG TABLET PO PRN (09:45)
[2022-03-08] MEDS: ERYTHROMYCIN BASE 0.5% OPHTH OINT 3.5GM BOTHEYE SCH ×4 (09:46→20:52)
[2022-03-08 11:06] LABS: PLATELET ESTIMATE NORMAL
[2022-03-08 11:06] LABS: CREATINE KINASE 11 IU/L (26-192)
[2022-03-08] MEDS: BLOOD SUGAR DIAGNOSTIC STRIP TEST SCH ×3 (12:39→20:57)
[2022-03-08] MEDS ORDERED: HYDROCODONE/ACETAMINOPHEN 5/325MG TABLET PO PRN (15:15)
[2022-03-08] MEDS ORDERED: NALOXONE HCL 0.4MG/ML VIAL IV PRN (15:15)
[2022-03-08 15:42] LABS: PLATELET ESTIMATE SLIGHTLY DECREASED
[2022-03-08] MEDS: DAPTOMYCIN 500 MG in SODIUM CHLORIDE 0.9% 50 ML IV SCH (18:49)
[2022-03-08] MEDS: MIRTAZAPINE 15MG TABLET PO SCH (20:52)
[2022-03-09] VITALS (7 sets, daily range): BP systolic 106–155; BP diastolic 29–53
[2022-03-09] MEDS: METOCLOPRAMIDE HCL 5MG TABLET PO SCH ×5 (00:15→23:47)
[2022-03-09] MEDS: ACETAMINOPHEN 325MG TABLET PO PRN (01:41)
[2022-03-09] MEDS: BLOOD SUGAR DIAGNOSTIC STRIP TEST SCH ×4 (06:47→20:36)
[2022-03-09] MEDS: INSULIN LISPRO 100 UNITS/ML SUBCUT SCH ×4 (07:39→20:23)
[2022-03-09 07:48] LABS: HEMATOCRIT. 23.1 % (36.0-48.0); HEMOGLOBIN. 7.5 g/dL (12.0-16.0); MEAN CORPUSCULAR HEMOGLOBIN 28.3 pg (28.0-32.0); MEAN CORPUSCULAR VOLUME 87.3 fL (81.0-99.0); MEAN PLATELET VOLUME 10.6 fl (7.4-10.4); RED BLOOD CELL COUNT 2.64 mill/uL (4.2-5.4); RED CELL DISTRIBUTION WIDTH 15.1 % (11.6-14.6)
[2022-03-09 08:16] LABS: PLATELET 51 x1000/uL (130-400)
[2022-03-09] MEDS: BENAZEPRIL 10MG TABLET PO SCH ×2 (08:45→18:12)
[2022-03-09] MEDS: AMLODIPINE 5MG TABLET PO SCH (08:46)
[2022-03-09] MEDS: POLYVINYL ALCOHOL OPHTH DROPS 15ML BOTHEYE PRN ×2 (08:47→22:15)
[2022-03-09] MEDS: HEPARIN 5000 UNITS/ML VIAL SUBCUT SCH (08:55)
[2022-03-09] MEDS: ERYTHROMYCIN BASE 0.5% OPHTH OINT 3.5GM BOTHEYE SCH ×4 (09:00→22:22)
[2022-03-09 16:14] LABS: BG BASE EXCESS 3.7 mmol/L (-2.0-2.0); BG CARBOXYHEMOGLOBIN 0.7 % (0.5-1.5); BG DEOXYHEMOGLOBIN 4.1 % (0.0-5.0); BG FRACTION INSPIRED OXYGEN 21; BG HCO3 ACT 27.7 mmol/L (22.0-26.0); BG METHEMOGLOBIN 0.4 % (0.0-1.5); BG OXYGEN SATURATION 95.9 % (92.0-98.5); BG OXYHEMOGLOBIN 94.8 % (94.0-97.0); BG PCO2 39.2 mmHg (35.0-45.0); BG PH 7.467 (7.350-7.450); BG PO2 75.5 mmHg (75.0-100.0); BG SAMPLE SITE RIGHT RADIAL; BG TOTAL HEMOGLOBIN 7.6 g/dL (12.0-18.0); BG VENT MODE ROOM AIR
[2022-03-09] MEDS: POTASSIUM CHLORIDE 20MEQ/PACKET PO NR ×2 (20:22→20:36)
[2022-03-09] MEDS: MIRTAZAPINE 15MG TABLET PO SCH (20:23)
[2022-03-09 21:49] LABS: PLATELET ESTIMATE MARKEDLY DECREASED
[2022-03-09] MEDS ORDERED: KCL 20MEQ/100ML PREMIX 100 ML IV NR (22:00)
[2022-03-10] VITALS (10 sets, daily range): BP systolic 115–144; BP diastolic 27–70
[2022-03-10] MEDS: METOCLOPRAMIDE HCL 5MG TABLET PO SCH ×3 (05:49→17:03)
[2022-03-10 07:33] LABS: MEAN CORPUSCULAR HEMOGLOBIN 27.9 pg (28.0-32.0); MEAN CORPUSCULAR VOLUME 86.9 fL (81.0-99.0); MEAN PLATELET VOLUME 10.6 fl (7.4-10.4); PLATELET 62 x1000/uL (130-400); RED CELL DISTRIBUTION WIDTH 15.1 % (11.6-14.6)
[2022-03-10] MEDS: BLOOD SUGAR DIAGNOSTIC STRIP TEST SCH ×4 (07:37→21:00)
[2022-03-10] MEDS: INSULIN LISPRO 100 UNITS/ML SUBCUT SCH ×4 (08:10→21:00)
[2022-03-10 08:12] LABS: HEMOGLOBIN. 6.4 g/dL (12.0-16.0)
[2022-03-10] MEDS: ERYTHROMYCIN BASE 0.5% OPHTH OINT 3.5GM BOTHEYE SCH ×2 (09:00→13:16)
[2022-03-10] MEDS: AMLODIPINE 5MG TABLET PO SCH (09:00)
[2022-03-10] MEDS: BENAZEPRIL 10MG TABLET PO SCH ×2 (09:00→17:03)
[2022-03-10] MEDS ORDERED: CEFTRIAXONE 2 G PREMIX 50 ML IV SCH (16:00)
[2022-03-10] MEDS: AMLODIPINE 2.5MG TABLET PO SCH (17:04)
[2022-03-10] MEDS: DAPTOMYCIN 500 MG in SODIUM CHLORIDE 0.9% 50 ML IV SCH (17:04)
[2022-03-10] MEDS: MIRTAZAPINE 15MG TABLET PO SCH (21:00)
[2022-03-10] MEDS: ACETAMINOPHEN 325MG TABLET PO PRN (21:18)
[2022-03-10] MEDS: CEFTRIAXONE 2 G in DEXTROSE 5% WATER 50 ML IV SCH (21:41)
[2022-03-10 22:39] LABS: PLATELET ESTIMATE DECREASED
[2022-03-11] VITALS: BP 154/88
[2022-03-11 04:00] VITALS: BP 151/55
[2022-03-11] MEDS: METOCLOPRAMIDE HCL 5MG TABLET PO SCH ×5 (06:09→23:32)
[2022-03-11] MEDS: ACETAMINOPHEN 325MG TABLET PO PRN ×3 (06:15→21:06)
[2022-03-11] MEDS: POLYVINYL ALCOHOL OPHTH DROPS 15ML BOTHEYE PRN (06:40)
[2022-03-11] MEDS: BLOOD SUGAR DIAGNOSTIC STRIP TEST SCH ×4 (07:40→20:51)
[2022-03-11 07:53] LABS: HEMOGLOBIN. 8.4 g/dL (12.0-16.0); MEAN CORPUSCULAR HEMOGLOBIN 28.7 pg (28.0-32.0); MEAN CORPUSCULAR VOLUME 88.4 fL (81.0-99.0); MEAN PLATELET VOLUME 10.7 fl (7.4-10.4); PLATELET 51 x1000/uL (130-400); RED BLOOD CELL COUNT 2.94 mill/uL (4.2-5.4); RED CELL DISTRIBUTION WIDTH 15.1 % (11.6-14.6)
[2022-03-11 08:00] VITALS: BP 136/52
[2022-03-11 08:12] LABS: D-DIMER 14.35 mg/L FEU (<0.50); INR 1.1; PROTHROMBIN TIME 11.9 sec (9.6-11.0)
[2022-03-11] MEDS: AMLODIPINE 2.5MG TABLET PO SCH ×2 (08:53→16:20)
[2022-03-11] MEDS: BENAZEPRIL 10MG TABLET PO SCH ×2 (08:53→16:19)
[2022-03-11] MEDS: INSULIN LISPRO 100 UNITS/ML SUBCUT SCH ×4 (08:54→21:02)
[2022-03-11] MEDS ORDERED: SODIUM POLYSTYRENE SULFONATE 15 G/60 ML BOT PO PRN (11:15)
[2022-03-11 11:20] LABS: PLATELET ESTIMATE MARKEDLY DECREASED
[2022-03-11 11:52] LABS: VITAMIN B12 SERUM > 2000.0 pg/mL (211-911)
[2022-03-11 12:00] VITALS: BP 138/45
[2022-03-11 12:45] LABS: FERRITIN 1189 ng/mL (10-291)
[2022-03-11 16:00] VITALS: BP 113/50
[2022-03-11] MEDS: CEFTRIAXONE 2 G in DEXTROSE 5% WATER 50 ML IV SCH (16:16)
[2022-03-11 20:00] VITALS: BP 158/75
[2022-03-12] VITALS: BP 128/46
[2022-03-12 04:00] VITALS: BP 130/87
[2022-03-12] MEDS: METOCLOPRAMIDE HCL 5MG TABLET PO SCH ×4 (05:19→23:13)
[2022-03-12 07:08] LABS: BASOPHILS % 0.4 % (0.0-2.0); EOSINOPHILS % 1.2 % (0.0-5.0); HEMATOCRIT. 26.4 % (36.0-48.0); HEMOGLOBIN. 8.6 g/dL (12.0-16.0); LYMPHOCYTES % 9.4 % (20.0-50.0); MEAN CORPUSCULAR HEMOGLOBIN 28.6 pg (28.0-32.0); MEAN CORPUSCULAR VOLUME 87.8 fL (81.0-99.0); MEAN PLATELET VOLUME 10.1 fl (7.4-10.4); MONOCYTES % 5.6 % (2.0-8.0); NEUTROPHILS % 83.4 % (40.0-76.0); RED BLOOD CELL COUNT 3.01 mill/uL (4.2-5.4); RED CELL DISTRIBUTION WIDTH 15.2 % (11.6-14.6)
[2022-03-12] MEDS: BLOOD SUGAR DIAGNOSTIC STRIP TEST SCH ×4 (07:57→20:29)
[2022-03-12 08:00] VITALS: BP 117/46
[2022-03-12] MEDS: AMLODIPINE 2.5MG TABLET PO SCH ×2 (08:45→17:44)
[2022-03-12] MEDS: INSULIN LISPRO 100 UNITS/ML SUBCUT SCH ×4 (08:46→21:10)
[2022-03-12] MEDS: BENAZEPRIL 10MG TABLET PO SCH (08:46)
[2022-03-12 12:00] VITALS: BP 98/36
[2022-03-12 12:18] LABS: PLATELET 39 x1000/uL (130-400)
[2022-03-12 16:00] VITALS: BP 127/39
[2022-03-12] MEDS: DAPTOMYCIN 500 MG in SODIUM CHLORIDE 0.9% 50 ML IV SCH (17:43)
[2022-03-12] MEDS: CEFTRIAXONE 2 G in DEXTROSE 5% WATER 50 ML IV SCH (17:43)
[2022-03-12 20:00] VITALS: BP 107/40
[2022-03-12] MEDS: METOPROLOL TARTRATE 25MG TABLET PO SCH (21:00)
[2022-03-13] VITALS (10 sets, daily range): BP systolic 101–137; BP diastolic 38–50
[2022-03-13] MEDS: METOCLOPRAMIDE HCL 5MG TABLET PO SCH ×3 (05:09→17:56)
[2022-03-13] MEDS: BLOOD SUGAR DIAGNOSTIC STRIP TEST SCH ×4 (07:40→21:00)
[2022-03-13 07:53] LABS: BASOPHILS % 0.2 % (0.0-2.0); EOSINOPHILS % 0.8 % (0.0-5.0); HEMATOCRIT. 21.9 % (36.0-48.0); LYMPHOCYTES % 8.3 % (20.0-50.0); MEAN CORPUSCULAR HEMOGLOBIN 28.3 pg (28.0-32.0); MEAN CORPUSCULAR VOLUME 88.5 fL (81.0-99.0); MEAN PLATELET VOLUME 11.2 fl (7.4-10.4); MONOCYTES % 5.9 % (2.0-8.0); NEUTROPHILS % 84.8 % (40.0-76.0); PLATELET 55 x1000/uL (130-400); RED BLOOD CELL COUNT 2.48 mill/uL (4.2-5.4); RED CELL DISTRIBUTION WIDTH 14.9 % (11.6-14.6)
[2022-03-13] MEDS: INSULIN LISPRO 100 UNITS/ML SUBCUT SCH ×4 (08:10→21:00)
[2022-03-13] MEDS: AMLODIPINE 2.5MG TABLET PO SCH ×2 (09:23→22:13)
[2022-03-13] MEDS: METOPROLOL TARTRATE 25MG TABLET PO SCH ×2 (09:24→22:08)
[2022-03-13 12:30] LABS: INR 1.2; PROTHROMBIN TIME 12.6 sec (9.6-11.0)
[2022-03-13] MEDS: CEFTRIAXONE 2 G in DEXTROSE 5% WATER 50 ML IV SCH (17:33)
[2022-03-13 21:40] LABS: HEMOGLOBIN 9.7 g/dL (12.0-16.0)
[2022-03-13 21:56] LABS: INR 1.1; PROTHROMBIN TIME 12.1 sec (9.6-11.0)
[2022-03-14] VITALS: BP 106/39
[2022-03-14] MEDS: METOCLOPRAMIDE HCL 5MG TABLET PO SCH ×4 (00:20→17:49)
[2022-03-14 04:00] VITALS: BP 110/34
[2022-03-14] MEDS: INSULIN LISPRO 100 UNITS/ML SUBCUT SCH ×4 (06:57→21:00)
[2022-03-14] MEDS: BLOOD SUGAR DIAGNOSTIC STRIP TEST SCH ×4 (06:57→21:13)
[2022-03-14 07:27] LABS: BASOPHILS % 0.5 % (0.0-2.0); EOSINOPHILS % 1.3 % (0.0-5.0); HEMATOCRIT. 26.6 % (36.0-48.0); HEMOGLOBIN. 8.9 g/dL (12.0-16.0); MEAN CORPUSCULAR HEMOGLOBIN 28.9 pg (28.0-32.0); MEAN CORPUSCULAR VOLUME 86.2 fL (81.0-99.0); MEAN PLATELET VOLUME 10.9 fl (7.4-10.4); MONOCYTES % 8.4 % (2.0-8.0); NEUTROPHILS % 75.8 % (40.0-76.0); PLATELET 69 x1000/uL (130-400); RED BLOOD CELL COUNT 3.09 mill/uL (4.2-5.4); RED CELL DISTRIBUTION WIDTH 15.3 % (11.6-14.6)
[2022-03-14 08:30] VITALS: BP 138/55
[2022-03-14] MEDS: AMLODIPINE 2.5MG TABLET PO SCH ×2 (09:25→21:00)
[2022-03-14] MEDS: METOPROLOL TARTRATE 25MG TABLET PO SCH ×2 (09:25→21:00)
[2022-03-14 12:00] VITALS: BP 120/45
[2022-03-14 16:00] VITALS: BP 117/40
[2022-03-14] MEDS: CEFTRIAXONE 2 G in DEXTROSE 5% WATER 50 ML IV SCH (16:43)
[2022-03-14] MEDS: DAPTOMYCIN 500 MG in SODIUM CHLORIDE 0.9% 50 ML IV SCH (16:44)
[2022-03-14 20:00] VITALS: BP 101/37
[2022-03-14] MEDS ORDERED: EPOETIN ALFA-EPBX 4,000 UNIT/ML VIAL SUBCUT SCH (21:00)
[2022-03-14] MEDS ORDERED: EPOETIN ALFA 2,000 UNIT/ML VIAL SUBCUT SCH (22:00)
[2022-03-15] VITALS: BP 132/43
[2022-03-15] MEDS: METOCLOPRAMIDE HCL 5MG TABLET PO SCH ×4 (00:23→18:21)
[2022-03-15 04:00] VITALS: BP 143/36
[2022-03-15 07:45] LABS: BASOPHILS % 0.3 % (0.0-2.0); EOSINOPHILS % 1.8 % (0.0-5.0); HEMATOCRIT. 27.6 % (36.0-48.0); HEMOGLOBIN. 9.2 g/dL (12.0-16.0); LYMPHOCYTES % 17.9 % (20.0-50.0); MEAN CORPUSCULAR HEMOGLOBIN 29.1 pg (28.0-32.0); MEAN CORPUSCULAR VOLUME 87.3 fL (81.0-99.0); MEAN PLATELET VOLUME 10.1 fl (7.4-10.4); MONOCYTES % 9.9 % (2.0-8.0); NEUTROPHILS % 70.1 % (40.0-76.0); PLATELET 93 x1000/uL (130-400); RED BLOOD CELL COUNT 3.16 mill/uL (4.2-5.4); RED CELL DISTRIBUTION WIDTH 15.3 % (11.6-14.6)
[2022-03-15] MEDS: BLOOD SUGAR DIAGNOSTIC STRIP TEST SCH ×4 (07:49→21:36)
[2022-03-15] MEDS: INSULIN LISPRO 100 UNITS/ML SUBCUT SCH ×4 (07:49→21:36)
[2022-03-15 08:12] VITALS: BP 111/54
[2022-03-15] MEDS: METOPROLOL TARTRATE 25MG TABLET PO SCH ×2 (08:54→21:33)
[2022-03-15] MEDS: AMLODIPINE 2.5MG TABLET PO SCH ×2 (08:54→21:35)
[2022-03-15] MEDS: DIPHENHYDRAMINE 50MG/ML VIAL IV PRN (10:42)
[2022-03-15] MEDS ORDERED: LIDOCAINE HCL 1% 10 MG/ML 10ML VIAL ONE (10:57)
[2022-03-15 12:00] VITALS: BP 123/37
[2022-03-15 16:00] VITALS: BP 123/37
[2022-03-15] MEDS: CEFTRIAXONE 2 G in DEXTROSE 5% WATER 50 ML IV SCH (18:21)
[2022-03-15 20:00] VITALS: BP 142/41
[2022-03-15] MEDS: ACETAMINOPHEN 325MG TABLET PO PRN (21:34)
[2022-03-16] VITALS: BP 138/43
[2022-03-16] MEDS: METOCLOPRAMIDE HCL 5MG TABLET PO SCH ×4 (00:08→18:05)
[2022-03-16 04:00] VITALS: BP 124/35
[2022-03-16 06:02] LABS: BASOPHILS % 0.2 % (0.0-2.0); EOSINOPHILS % 1.4 % (0.0-5.0); HEMATOCRIT. 26.4 % (36.0-48.0); HEMOGLOBIN. 8.7 g/dL (12.0-16.0); LYMPHOCYTES % 15.7 % (20.0-50.0); MEAN CORPUSCULAR HEMOGLOBIN 28.9 pg (28.0-32.0); MEAN CORPUSCULAR VOLUME 87.1 fL (81.0-99.0); MEAN PLATELET VOLUME 10.6 fl (7.4-10.4); NEUTROPHILS % 74.7 % (40.0-76.0); PLATELET 147 x1000/uL (130-400); RED BLOOD CELL COUNT 3.03 mill/uL (4.2-5.4); RED CELL DISTRIBUTION WIDTH 15.5 % (11.6-14.6)
[2022-03-16] MEDS: BLOOD SUGAR DIAGNOSTIC STRIP TEST SCH ×4 (06:18→21:00)
[2022-03-16 08:00] VITALS: BP 140/46
[2022-03-16] MEDS: AMLODIPINE 2.5MG TABLET PO SCH (09:46)
[2022-03-16] MEDS: INSULIN LISPRO 100 UNITS/ML SUBCUT SCH ×4 (09:48→22:03)
[2022-03-16] MEDS: METOPROLOL TARTRATE 25MG TABLET PO SCH (09:48)
[2022-03-16 16:00] VITALS: BP 128/36
[2022-03-16] MEDS: CEFTRIAXONE 2 G in DEXTROSE 5% WATER 50 ML IV SCH (17:16)
[2022-03-16] MEDS: DAPTOMYCIN 500 MG in SODIUM CHLORIDE 0.9% 50 ML IV SCH (17:16)
[2022-03-16 20:00] VITALS: BP 106/57
[2022-03-17] VITALS: BP 139/48
[2022-03-17] MEDS: IRON SUCROSE COMPLEX 100 MG/5 ML ML IV SCH ×2 (00:09→23:57)
[2022-03-17] MEDS: METOCLOPRAMIDE HCL 5MG TABLET PO SCH ×4 (00:12→17:13)
[2022-03-17] MEDS: METOPROLOL TARTRATE 25MG TABLET PO SCH ×3 (00:22→21:00)
[2022-03-17] MEDS: AMLODIPINE 2.5MG TABLET PO SCH ×3 (00:22→21:00)
[2022-03-17 04:00] VITALS: BP 139/40
[2022-03-17 05:53] LABS: BASOPHILS % 1.1 % (0.0-2.0); EOSINOPHILS % 2.1 % (0.0-5.0); HEMATOCRIT. 26.8 % (36.0-48.0); HEMOGLOBIN. 8.7 g/dL (12.0-16.0); LYMPHOCYTES % 18.5 % (20.0-50.0); MEAN CORPUSCULAR HEMOGLOBIN 29.3 pg (28.0-32.0); MEAN CORPUSCULAR VOLUME 90.3 fL (81.0-99.0); MEAN PLATELET VOLUME 10.3 fl (7.4-10.4); MONOCYTES % 8.4 % (2.0-8.0); NEUTROPHILS % 69.9 % (40.0-76.0); PLATELET 153 x1000/uL (130-400); RED BLOOD CELL COUNT 2.97 mill/uL (4.2-5.4); RED CELL DISTRIBUTION WIDTH 16.1 % (11.6-14.6)
[2022-03-17] MEDS: BLOOD SUGAR DIAGNOSTIC STRIP TEST SCH ×4 (06:14→21:26)
[2022-03-17 08:00] VITALS: BP 121/40
[2022-03-17] MEDS: INSULIN LISPRO 100 UNITS/ML SUBCUT SCH ×4 (08:10→21:25)
[2022-03-17 12:00] VITALS: BP 112/42
[2022-03-17] MEDS: CEFTRIAXONE 2 G in DEXTROSE 5% WATER 50 ML IV SCH (15:32)
[2022-03-17 16:00] VITALS: BP 122/43
[2022-03-17 18:37] LABS: CREATINE KINASE 23 IU/L (26-192)
[2022-03-17 20:00] VITALS: BP 103/51
[2022-03-17] MEDS: EPOETIN ALFA-EPBX 4,000 UNIT/ML VIAL SUBCUT SCH (21:26)
[2022-03-18] VITALS: BP 129/49
[2022-03-18 04:00] VITALS: BP 138/45
[2022-03-18] MEDS: METOCLOPRAMIDE HCL 5MG TABLET PO SCH ×4 (05:01→17:04)
[2022-03-18] MEDS: BLOOD SUGAR DIAGNOSTIC STRIP TEST SCH ×4 (06:20→21:11)
[2022-03-18 07:22] LABS: BASOPHILS % 0.7 % (0.0-2.0); EOSINOPHILS % 2.9 % (0.0-5.0); HEMATOCRIT. 27.8 % (36.0-48.0); HEMOGLOBIN. 9.3 g/dL (12.0-16.0); LYMPHOCYTES % 13.5 % (20.0-50.0); MEAN CORPUSCULAR HEMOGLOBIN 29.4 pg (28.0-32.0); MEAN CORPUSCULAR VOLUME 88.1 fL (81.0-99.0); MEAN PLATELET VOLUME 10.3 fl (7.4-10.4); MONOCYTES % 6.7 % (2.0-8.0); NEUTROPHILS % 76.2 % (40.0-76.0); PLATELET 179 x1000/uL (130-400); RED BLOOD CELL COUNT 3.16 mill/uL (4.2-5.4); RED CELL DISTRIBUTION WIDTH 15.8 % (11.6-14.6)
[2022-03-18 08:00] VITALS: BP 136/49
[2022-03-18] MEDS: INSULIN LISPRO 100 UNITS/ML SUBCUT SCH ×4 (08:10→21:00)
[2022-03-18] MEDS: METOPROLOL TARTRATE 25MG TABLET PO SCH ×2 (08:35→21:34)
[2022-03-18] MEDS: AMLODIPINE 2.5MG TABLET PO SCH ×2 (08:35→21:34)
[2022-03-18] MEDS ORDERED: THROMBIN (BOVINE) 5000 UNITS/VIAL TOP ONE (09:43)
[2022-03-18] MEDS ORDERED: LIDOCAINE HCL 1% 50ML VIAL (10MG/ML) ONE (09:43)
[2022-03-18] MEDS ORDERED: BUPIVACAINE HCL/PF 0.5% (5MG/ML) 10ML ONE (09:44)
[2022-03-18] MEDS ORDERED: BACITRACIN 15GM TUBE TOP ONE (09:44)
[2022-03-18] MEDS ORDERED: POLYMYXIN B SULFATE 500000 UNITS/VIAL ONE (09:44)
[2022-03-18 11:53] VITALS: BP 142/49
[2022-03-18] MEDS: DAPTOMYCIN 500 MG in SODIUM CHLORIDE 0.9% 50 ML IV SCH (15:55)
[2022-03-18] MEDS: CEFTRIAXONE 2 G in DEXTROSE 5% WATER 50 ML IV SCH (15:59)
[2022-03-18 16:00] VITALS: BP 133/51
[2022-03-18 20:00] VITALS: BP 128/55
[2022-03-18] MEDS: HEPARIN 5000 UNITS/ML VIAL SUBCUT SCH (21:34)
[2022-03-18] MEDS: IRON SUCROSE COMPLEX 100 MG/5 ML ML IV SCH (23:45)
[2022-03-19] VITALS: BP 140/50
[2022-03-19 04:00] VITALS: BP 138/76
[2022-03-19] MEDS: METOCLOPRAMIDE HCL 5MG TABLET PO SCH ×5 (06:00→23:42)
[2022-03-19 06:56] LABS: BASOPHILS % 0.6 % (0.0-2.0); EOSINOPHILS % 0.7 % (0.0-5.0); HEMATOCRIT. 29.6 % (36.0-48.0); HEMOGLOBIN. 9.4 g/dL (12.0-16.0); LYMPHOCYTES % 8.7 % (20.0-50.0); MEAN CORPUSCULAR HEMOGLOBIN 28.9 pg (28.0-32.0); MEAN CORPUSCULAR VOLUME 90.3 fL (81.0-99.0); MEAN PLATELET VOLUME 9.9 fl (7.4-10.4); MONOCYTES % 5.2 % (2.0-8.0); NEUTROPHILS % 84.8 % (40.0-76.0); PLATELET 220 x1000/uL (130-400); RED BLOOD CELL COUNT 3.27 mill/uL (4.2-5.4); RED CELL DISTRIBUTION WIDTH 16.2 % (11.6-14.6)
[2022-03-19] MEDS: BLOOD SUGAR DIAGNOSTIC STRIP TEST SCH ×4 (07:40→21:00)
[2022-03-19 08:00] VITALS: BP 139/53
[2022-03-19] MEDS: INSULIN LISPRO 100 UNITS/ML SUBCUT SCH ×4 (08:10→21:00)
[2022-03-19] MEDS: ACETAMINOPHEN 325MG TABLET PO PRN (08:40)
[2022-03-19] MEDS: METOPROLOL TARTRATE 25MG TABLET PO SCH ×2 (08:46→23:42)
[2022-03-19] MEDS: AMLODIPINE 2.5MG TABLET PO SCH ×2 (08:46→23:43)
[2022-03-19] MEDS: HEPARIN 5000 UNITS/ML VIAL SUBCUT SCH ×2 (08:47→23:46)
[2022-03-19 12:00] VITALS: BP 106/50
[2022-03-19] MEDS ORDERED: HYDROCODONE/ACETAMINOPHEN 5/325MG TABLET PO PRN (13:45)
[2022-03-19 16:00] VITALS: BP 113/48
[2022-03-19] MEDS: CEFTRIAXONE 2 G in DEXTROSE 5% WATER 50 ML IV SCH (16:57)
[2022-03-19 20:00] VITALS: BP 138/71
[2022-03-19] MEDS: EPOETIN ALFA-EPBX 4,000 UNIT/ML VIAL SUBCUT SCH (23:44)
[2022-03-20] VITALS: BP 130/79
[2022-03-20] MEDS: POLYVINYL ALCOHOL OPHTH DROPS 15ML BOTHEYE PRN (00:22)
[2022-03-20] MEDS: ACETAMINOPHEN 325MG TABLET PO PRN (00:23)
[2022-03-20] MEDS: IRON SUCROSE COMPLEX 100 MG/5 ML ML IV SCH (00:23)
[2022-03-20 04:00] VITALS: BP 116/75
[2022-03-20] MEDS: BLOOD SUGAR DIAGNOSTIC STRIP TEST SCH ×4 (07:40→21:14)
[2022-03-20 08:00] VITALS: BP 129/43
[2022-03-20] MEDS: INSULIN LISPRO 100 UNITS/ML SUBCUT SCH ×4 (08:10→21:00)
[2022-03-20 08:40] LABS: BASOPHILS % 0.6 % (0.0-2.0); EOSINOPHILS % 1.2 % (0.0-5.0); HEMATOCRIT. 22.6 % (36.0-48.0); HEMOGLOBIN. 7.2 g/dL (12.0-16.0); LYMPHOCYTES % 13.2 % (20.0-50.0); MEAN CORPUSCULAR HEMOGLOBIN 28.6 pg (28.0-32.0); MEAN CORPUSCULAR VOLUME 89.7 fL (81.0-99.0); MONOCYTES % 6.6 % (2.0-8.0); NEUTROPHILS % 78.4 % (40.0-76.0); PLATELET 216 x1000/uL (130-400); RED BLOOD CELL COUNT 2.51 mill/uL (4.2-5.4)
[2022-03-20] MEDS: METOCLOPRAMIDE HCL 5MG TABLET PO SCH ×3 (09:21→18:37)
[2022-03-20] MEDS: METOPROLOL TARTRATE 25MG TABLET PO SCH ×2 (09:25→21:00)
[2022-03-20] MEDS: AMLODIPINE 2.5MG TABLET PO SCH ×2 (09:25→21:00)
[2022-03-20] MEDS: HEPARIN 5000 UNITS/ML VIAL SUBCUT SCH ×2 (09:26→21:14)
[2022-03-20 12:00] VITALS: BP 123/47
[2022-03-20] MEDS ORDERED: LIDOCAINE HCL 4% CREAM 76GM TUBE TP PRN (12:00)
[2022-03-20 12:27] LABS: HEMOGLOBIN 7.9 g/dL (12.0-16.0)
[2022-03-20 16:00] VITALS: BP 124/47
[2022-03-20] MEDS: CEFTRIAXONE 2 G in DEXTROSE 5% WATER 50 ML IV SCH (18:37)
[2022-03-20] MEDS: DAPTOMYCIN 500 MG in SODIUM CHLORIDE 0.9% 50 ML IV SCH (18:39)
[2022-03-20 20:00] VITALS: BP 114/41
[2022-03-21] VITALS: BP 111/47
[2022-03-21 04:00] VITALS: BP 119/44
[2022-03-21] MEDS: METOCLOPRAMIDE HCL 5MG TABLET PO SCH ×5 (05:16→23:55)
[2022-03-21 06:30] LABS: BASOPHILS % 0.7 % (0.0-2.0); EOSINOPHILS % 1.5 % (0.0-5.0); HEMATOCRIT. 23.7 % (36.0-48.0); HEMOGLOBIN. 7.5 g/dL (12.0-16.0); MEAN CORPUSCULAR HEMOGLOBIN 28.9 pg (28.0-32.0); MEAN CORPUSCULAR VOLUME 90.9 fL (81.0-99.0); MEAN PLATELET VOLUME 10.9 fl (7.4-10.4); MONOCYTES % 5.6 % (2.0-8.0); NEUTROPHILS % 75.2 % (40.0-76.0); PLATELET 219 x1000/uL (130-400); RED CELL DISTRIBUTION WIDTH 16.3 % (11.6-14.6)
[2022-03-21] MEDS: BLOOD SUGAR DIAGNOSTIC STRIP TEST SCH ×4 (07:40→20:40)
[2022-03-21] MEDS: INSULIN LISPRO 100 UNITS/ML SUBCUT SCH ×4 (07:50→20:40)
[2022-03-21 08:00] VITALS: BP 108/50
[2022-03-21] MEDS: METOPROLOL TARTRATE 25MG TABLET PO SCH ×2 (08:37→20:40)
[2022-03-21] MEDS: AMLODIPINE 2.5MG TABLET PO SCH ×2 (08:38→20:40)
[2022-03-21] MEDS: HEPARIN 5000 UNITS/ML VIAL SUBCUT SCH ×2 (08:44→20:39)
[2022-03-21 12:00] VITALS: BP 133/60
[2022-03-21] MEDS: CEFTRIAXONE 2 G in DEXTROSE 5% WATER 50 ML IV SCH (15:46)
[2022-03-21 16:00] VITALS: BP 140/51
[2022-03-21 20:00] VITALS: BP 124/46
[2022-03-21] MEDS: EPOETIN ALFA-EPBX 4,000 UNIT/ML VIAL SUBCUT SCH (20:40)
[2022-03-22] VITALS (21 sets, daily range): BP systolic 101–134; BP diastolic 40–63
[2022-03-22] MEDS: METOCLOPRAMIDE HCL 5MG TABLET PO SCH ×4 (06:15→23:42)
[2022-03-22] MEDS: BLOOD SUGAR DIAGNOSTIC STRIP TEST SCH ×4 (06:15→21:00)
[2022-03-22] MEDS: INSULIN LISPRO 100 UNITS/ML SUBCUT SCH ×4 (06:34→21:00)
[2022-03-22 07:15] LABS: BASOPHILS % 0.6 % (0.0-2.0); EOSINOPHILS % 2.2 % (0.0-5.0); HEMATOCRIT. 22.8 % (36.0-48.0); HEMOGLOBIN. 7.5 g/dL (12.0-16.0); LYMPHOCYTES % 18.6 % (20.0-50.0); MEAN CORPUSCULAR HEMOGLOBIN 29.6 pg (28.0-32.0); MEAN CORPUSCULAR VOLUME 89.4 fL (81.0-99.0); MEAN PLATELET VOLUME 10.7 fl (7.4-10.4); MONOCYTES % 5.6 % (2.0-8.0); PLATELET 218 x1000/uL (130-400); RED BLOOD CELL COUNT 2.55 mill/uL (4.2-5.4); RED CELL DISTRIBUTION WIDTH 15.4 % (11.6-14.6)
[2022-03-22] MEDS: AMLODIPINE 2.5MG TABLET PO SCH ×2 (09:05→20:35)
[2022-03-22] MEDS: METOPROLOL TARTRATE 25MG TABLET PO SCH ×2 (09:05→20:35)
[2022-03-22] MEDS: HEPARIN 5000 UNITS/ML VIAL SUBCUT SCH (09:06)
[2022-03-22 11:15] LABS: BG BASE EXCESS -0.2 mmol/L (-2.0-2.0); BG CARBOXYHEMOGLOBIN 0.2 % (0.5-1.5); BG DEOXYHEMOGLOBIN 5.6 % (0.0-5.0); BG FRACTION INSPIRED OXYGEN 10; BG HCO3 ACT 24.4 mmol/L (22.0-26.0); BG METHEMOGLOBIN 0.5 % (0.0-1.5); BG OXYGEN SATURATION 94.4 % (92.0-98.5); BG OXYHEMOGLOBIN 93.7 % (94.0-97.0); BG PCO2 39.5 mmHg (35.0-45.0); BG PH 7.409 (7.350-7.450); BG PO2 71.5 mmHg (75.0-100.0); BG SAMPLE SITE RIGHT BRACHIAL; BG TOTAL HEMOGLOBIN 7.5 g/dL (12.0-18.0); BG VENT MODE MASK - NRB
[2022-03-22] MEDS ORDERED: NICARDIPINE 100 MG in SODIUM CHLORIDE 0.9% 60 ML IV PRN (11:30)
[2022-03-22] MEDS ORDERED: IOHEXOL-350 100 ML BOTTLE ONE (14:24)
[2022-03-22] MEDS ORDERED: NALOXONE HCL 0.4MG/ML VIAL IV PRN (15:15)
[2022-03-22] MEDS: DAPTOMYCIN 500 MG in SODIUM CHLORIDE 0.9% 50 ML IV SCH (18:22)
[2022-03-22] MEDS: CEFTRIAXONE 2 G in DEXTROSE 5% WATER 50 ML IV SCH (20:34)
[2022-03-23] VITALS (46 sets, daily range): BP systolic 99–148; BP diastolic 42–92
[2022-03-23] MEDS: METOCLOPRAMIDE HCL 5MG TABLET PO SCH (06:06)
[2022-03-23] MEDS: INSULIN LISPRO 100 UNITS/ML SUBCUT SCH ×4 (06:06→21:45)
[2022-03-23] MEDS: BLOOD SUGAR DIAGNOSTIC STRIP TEST SCH ×4 (06:06→21:43)
[2022-03-23] MEDS: METOPROLOL TARTRATE 25MG TABLET PO SCH ×2 (08:56→21:48)
[2022-03-23] MEDS: AMLODIPINE 2.5MG TABLET PO SCH ×2 (08:56→21:48)
[2022-03-23] MEDS: CEFTRIAXONE 2 G in DEXTROSE 5% WATER 50 ML IV SCH (15:51)
[2022-03-23] MEDS: DIPHENHYDRAMINE 50MG/ML VIAL IV PRN (21:09)
[2022-03-24] VITALS (54 sets, daily range): BP systolic 104–145; BP diastolic 25–70
[2022-03-24] MEDS: BLOOD SUGAR DIAGNOSTIC STRIP TEST SCH ×4 (06:30→21:28)
[2022-03-24] MEDS: INSULIN LISPRO 100 UNITS/ML SUBCUT SCH ×4 (07:00→21:30)
[2022-03-24 08:09] LABS: BASOPHILS % 0.7 % (0.0-2.0); EOSINOPHILS % 2.9 % (0.0-5.0); HEMATOCRIT. 24.7 % (36.0-48.0); LYMPHOCYTES % 20.5 % (20.0-50.0); MEAN CORPUSCULAR HEMOGLOBIN 28.8 pg (28.0-32.0); MEAN CORPUSCULAR VOLUME 88.7 fL (81.0-99.0); MONOCYTES % 8.3 % (2.0-8.0); NEUTROPHILS % 67.6 % (40.0-76.0); PLATELET 222 x1000/uL (130-400); RED BLOOD CELL COUNT 2.78 mill/uL (4.2-5.4); RED CELL DISTRIBUTION WIDTH 15.7 % (11.6-14.6)
[2022-03-24] MEDS: METOPROLOL TARTRATE 25MG TABLET PO SCH ×2 (10:09→21:31)
[2022-03-24] MEDS: AMLODIPINE 2.5MG TABLET PO SCH ×2 (10:10→21:31)
[2022-03-24] MEDS: CEFTRIAXONE 2 G in DEXTROSE 5% WATER 50 ML IV SCH (15:50)
[2022-03-24] MEDS: DAPTOMYCIN 500 MG in SODIUM CHLORIDE 0.9% 50 ML IV SCH (15:50)
[2022-03-25 00:51] VITALS: BP 130/40
[2022-03-25 04:00] VITALS: BP 117/38
[2022-03-25 06:53] LABS: BASOPHILS % 0.8 % (0.0-2.0); EOSINOPHILS % 2.9 % (0.0-5.0); HEMATOCRIT. 25.1 % (36.0-48.0); HEMOGLOBIN. 8.3 g/dL (12.0-16.0); LYMPHOCYTES % 19.3 % (20.0-50.0); MEAN CORPUSCULAR HEMOGLOBIN 29.3 pg (28.0-32.0); MEAN CORPUSCULAR VOLUME 88.6 fL (81.0-99.0); MEAN PLATELET VOLUME 10.1 fl (7.4-10.4); MONOCYTES % 7.9 % (2.0-8.0); NEUTROPHILS % 69.1 % (40.0-76.0); PLATELET 200 x1000/uL (130-400); RED BLOOD CELL COUNT 2.83 mill/uL (4.2-5.4); RED CELL DISTRIBUTION WIDTH 15.4 % (11.6-14.6)
[2022-03-25] MEDS: BLOOD SUGAR DIAGNOSTIC STRIP TEST SCH ×4 (07:20→21:18)
[2022-03-25] MEDS: INSULIN LISPRO 100 UNITS/ML SUBCUT SCH ×4 (07:50→21:00)
[2022-03-25 08:00] VITALS: BP 143/34
[2022-03-25] MEDS: METOPROLOL TARTRATE 25MG TABLET PO SCH ×2 (09:00→20:42)
[2022-03-25] MEDS: AMLODIPINE 2.5MG TABLET PO SCH ×2 (09:00→20:40)
[2022-03-25] MEDS: LACTOBACILLUS GG CAPSULE PO SCH (15:30)
[2022-03-25] MEDS: CEFTRIAXONE 2 G in DEXTROSE 5% WATER 50 ML IV SCH (16:23)
[2022-03-25 20:00] VITALS: BP 125/36
[2022-03-26] VITALS: BP 135/31
[2022-03-26 04:00] VITALS: BP 153/47
[2022-03-26] MEDS: INSULIN LISPRO 100 UNITS/ML SUBCUT SCH ×4 (07:50→20:40)
[2022-03-26] MEDS: BLOOD SUGAR DIAGNOSTIC STRIP TEST SCH ×4 (07:53→20:39)
[2022-03-26 08:00] VITALS: BP 142/40
[2022-03-26] MEDS: METOPROLOL TARTRATE 25MG TABLET PO SCH ×2 (09:00→20:36)
[2022-03-26] MEDS: AMLODIPINE 2.5MG TABLET PO SCH ×2 (09:00→20:38)
[2022-03-26] MEDS: LACTOBACILLUS GG CAPSULE PO SCH (09:21)
[2022-03-26 12:00] VITALS: BP_SYST 120; BP_SYST 151; BP_DIAS 46; BP_DIAS 48
[2022-03-26 16:00] VITALS: BP 120/48
[2022-03-26] MEDS: CEFTRIAXONE 2 G in DEXTROSE 5% WATER 50 ML IV SCH (18:19)
[2022-03-26] MEDS: DAPTOMYCIN 500 MG in SODIUM CHLORIDE 0.9% 50 ML IV SCH (19:24)
[2022-03-26 20:01] LABS: BASOPHILS % 0.7 % (0.0-2.0); EOSINOPHILS % 2.7 % (0.0-5.0); HEMATOCRIT. 27.8 % (36.0-48.0); HEMOGLOBIN. 9.1 g/dL (12.0-16.0); LYMPHOCYTES % 20.5 % (20.0-50.0); MEAN CORPUSCULAR VOLUME 88.5 fL (81.0-99.0); MEAN PLATELET VOLUME 9.4 fl (7.4-10.4); MONOCYTES % 10.1 % (2.0-8.0); PLATELET 214 x1000/uL (130-400); RED BLOOD CELL COUNT 3.14 mill/uL (4.2-5.4); RED CELL DISTRIBUTION WIDTH 15.8 % (11.6-14.6)
[2022-03-26 20:58] VITALS: BP 91/37
[2022-03-27 07:30] LABS: BASOPHILS % 0.8 % (0.0-2.0); EOSINOPHILS % 2.7 % (0.0-5.0); HEMATOCRIT. 26.7 % (36.0-48.0); HEMOGLOBIN. 8.8 g/dL (12.0-16.0); LYMPHOCYTES % 22.9 % (20.0-50.0); MEAN CORPUSCULAR VOLUME 88.3 fL (81.0-99.0); MEAN PLATELET VOLUME 9.7 fl (7.4-10.4); MONOCYTES % 10.6 % (2.0-8.0); PLATELET 196 x1000/uL (130-400); RED BLOOD CELL COUNT 3.02 mill/uL (4.2-5.4); RED CELL DISTRIBUTION WIDTH 16.4 % (11.6-14.6)
[2022-03-27] MEDS: INSULIN LISPRO 100 UNITS/ML SUBCUT SCH ×4 (07:50→21:00)
[2022-03-27 08:00] VITALS: BP 167/54
[2022-03-27] MEDS: BLOOD SUGAR DIAGNOSTIC STRIP TEST SCH ×4 (08:05→21:00)
[2022-03-27] MEDS: LACTOBACILLUS GG CAPSULE PO SCH (08:33)
[2022-03-27] MEDS: AMLODIPINE 2.5MG TABLET PO SCH ×2 (08:33→23:05)
[2022-03-27] MEDS: METOPROLOL TARTRATE 25MG TABLET PO SCH ×2 (08:34→23:05)
[2022-03-27 12:00] VITALS: BP 158/48
[2022-03-27 16:00] VITALS: BP 144/40
[2022-03-27] MEDS: CEFTRIAXONE 2 G in DEXTROSE 5% WATER 50 ML IV SCH (16:31)
[2022-03-28] VITALS: BP 126/43
[2022-03-28 04:00] VITALS: BP 126/46
[2022-03-28 06:29] LABS: BASOPHILS % 0.7 % (0.0-2.0); EOSINOPHILS % 3.4 % (0.0-5.0); HEMATOCRIT. 25.7 % (36.0-48.0); HEMOGLOBIN. 8.5 g/dL (12.0-16.0); LYMPHOCYTES % 21.2 % (20.0-50.0); MEAN CORPUSCULAR HEMOGLOBIN 29.4 pg (28.0-32.0); MEAN CORPUSCULAR VOLUME 88.9 fL (81.0-99.0); MEAN PLATELET VOLUME 9.9 fl (7.4-10.4); MONOCYTES % 9.8 % (2.0-8.0); NEUTROPHILS % 64.9 % (40.0-76.0); PLATELET 192 x1000/uL (130-400); RED CELL DISTRIBUTION WIDTH 16.7 % (11.6-14.6)
[2022-03-28] MEDS: BLOOD SUGAR DIAGNOSTIC STRIP TEST SCH ×4 (06:46→21:12)
[2022-03-28] MEDS: INSULIN LISPRO 100 UNITS/ML SUBCUT SCH ×4 (07:50→21:00)
[2022-03-28 08:00] VITALS: BP 165/58
[2022-03-28] MEDS: LACTOBACILLUS GG CAPSULE PO SCH (10:12)
[2022-03-28] MEDS: METOPROLOL TARTRATE 25MG TABLET PO SCH ×2 (10:13→20:59)
[2022-03-28] MEDS: AMLODIPINE 2.5MG TABLET PO SCH ×2 (10:13→21:00)
[2022-03-28 12:00] VITALS: BP_SYST 109; BP_SYST 112; BP_DIAS 40; BP_DIAS 44
[2022-03-28 16:00] VITALS: BP 112/40
[2022-03-28] MEDS: CEFTRIAXONE 2 G in DEXTROSE 5% WATER 50 ML IV SCH (16:30)
[2022-03-28] MEDS: DAPTOMYCIN 500 MG in SODIUM CHLORIDE 0.9% 50 ML IV SCH (17:09)
[2022-03-28 20:00] VITALS: BP 105/43
[2022-03-29] VITALS: BP 132/45
[2022-03-29 04:00] VITALS: BP 123/49
[2022-03-29 07:51] LABS: BASOPHILS % 0.8 % (0.0-2.0); EOSINOPHILS % 3.6 % (0.0-5.0); HEMATOCRIT. 23.7 % (36.0-48.0); HEMOGLOBIN. 7.8 g/dL (12.0-16.0); LYMPHOCYTES % 19.7 % (20.0-50.0); MEAN CORPUSCULAR HEMOGLOBIN 29.3 pg (28.0-32.0); MEAN CORPUSCULAR VOLUME 89.4 fL (81.0-99.0); MEAN PLATELET VOLUME 9.8 fl (7.4-10.4); MONOCYTES % 9.1 % (2.0-8.0); NEUTROPHILS % 66.8 % (40.0-76.0); PLATELET 178 x1000/uL (130-400); RED BLOOD CELL COUNT 2.65 mill/uL (4.2-5.4); RED CELL DISTRIBUTION WIDTH 16.5 % (11.6-14.6)
[2022-03-29 08:00] VITALS: BP 140/47
[2022-03-29] MEDS: AMLODIPINE 2.5MG TABLET PO SCH ×2 (08:52→21:17)
[2022-03-29] MEDS: LACTOBACILLUS GG CAPSULE PO SCH (08:53)
[2022-03-29] MEDS: METOPROLOL TARTRATE 25MG TABLET PO SCH ×2 (08:53→21:17)
[2022-03-29 12:00] VITALS: BP 118/55
[2022-03-29 16:27] VITALS: BP 124/46
[2022-03-29] MEDS: CEFTRIAXONE 2 G in DEXTROSE 5% WATER 50 ML IV SCH (16:32)
[2022-03-29 20:00] VITALS: BP 134/45
[2022-03-29] MEDS ORDERED: EPOETIN ALFA-EPBX 4,000 UNIT/ML VIAL SUBCUT NR (21:00)
[2022-03-30] VITALS: BP 138/53
[2022-03-30 04:00] VITALS: BP 135/50
[2022-03-30 07:04] LABS: BASOPHILS % 0.8 % (0.0-2.0); EOSINOPHILS % 3.1 % (0.0-5.0); HEMATOCRIT. 23.1 % (36.0-48.0); HEMOGLOBIN. 7.6 g/dL (12.0-16.0); LYMPHOCYTES % 21.4 % (20.0-50.0); MEAN CORPUSCULAR HEMOGLOBIN 29.2 pg (28.0-32.0); MEAN CORPUSCULAR VOLUME 89.6 fL (81.0-99.0); MEAN PLATELET VOLUME 10.1 fl (7.4-10.4); MONOCYTES % 8.2 % (2.0-8.0); NEUTROPHILS % 66.5 % (40.0-76.0); PLATELET 175 x1000/uL (130-400); RED BLOOD CELL COUNT 2.58 mill/uL (4.2-5.4); RED CELL DISTRIBUTION WIDTH 17.1 % (11.6-14.6)
[2022-03-30 08:00] VITALS: BP 140/49
[2022-03-30] MEDS: LACTOBACILLUS GG CAPSULE PO SCH (09:08)
[2022-03-30] MEDS: METOPROLOL TARTRATE 25MG TABLET PO SCH ×2 (09:13→21:30)
[2022-03-30] MEDS: AMLODIPINE 2.5MG TABLET PO SCH ×2 (09:13→21:30)
[2022-03-30 12:00] VITALS: BP 130/47
[2022-03-30 16:00] VITALS: BP 130/49
[2022-03-30] MEDS: DAPTOMYCIN 500 MG in SODIUM CHLORIDE 0.9% 50 ML IV SCH (16:44)
[2022-03-30] MEDS: CEFTRIAXONE 2 G in DEXTROSE 5% WATER 50 ML IV SCH (16:56)
[2022-03-30 20:00] VITALS: BP 142/52
[2022-03-31] VITALS: BP 112/52
[2022-03-31 04:00] VITALS: BP 123/74
[2022-03-31 07:25] LABS: BASOPHILS % 0.8 % (0.0-2.0); EOSINOPHILS % 3.4 % (0.0-5.0); HEMATOCRIT. 22.6 % (36.0-48.0); HEMOGLOBIN. 7.4 g/dL (12.0-16.0); LYMPHOCYTES % 24.4 % (20.0-50.0); MEAN CORPUSCULAR HEMOGLOBIN 29.3 pg (28.0-32.0); MEAN CORPUSCULAR VOLUME 89.9 fL (81.0-99.0); MONOCYTES % 8.1 % (2.0-8.0); NEUTROPHILS % 63.3 % (40.0-76.0); PLATELET 173 x1000/uL (130-400); RED BLOOD CELL COUNT 2.51 mill/uL (4.2-5.4); RED CELL DISTRIBUTION WIDTH 16.9 % (11.6-14.6)
[2022-03-31] MEDS: METOPROLOL TARTRATE 25MG TABLET PO SCH ×2 (09:00→21:21)
[2022-03-31] MEDS: LACTOBACILLUS GG CAPSULE PO SCH (09:01)
[2022-03-31] MEDS: IRON SUCROSE COMPLEX 100 MG/5 ML ML IV SCH (09:01)
[2022-03-31] MEDS: AMLODIPINE 2.5MG TABLET PO SCH ×2 (09:07→21:21)
[2022-03-31 12:00] VITALS: BP 137/56
[2022-03-31] MEDS: CEFTRIAXONE 2 G in DEXTROSE 5% WATER 50 ML IV SCH (15:03)
[2022-03-31] MEDS ORDERED: POTASSIUM CHLORIDE 20MEQ/PACKET PO SCH (15:15)
[2022-03-31 16:00] VITALS: BP 120/54
[2022-03-31 20:00] VITALS: BP 137/71
[2022-03-31] MEDS ORDERED: EPOETIN ALFA-EPBX 4,000 UNIT/ML VIAL SUBCUT SCH (21:00)
[2022-04-01] VITALS: BP 136/63
[2022-04-01 04:00] VITALS: BP 142/64
[2022-04-01 07:14] LABS: BASOPHILS % 0.8 % (0.0-2.0); EOSINOPHILS % 3.8 % (0.0-5.0); HEMATOCRIT. 23.1 % (36.0-48.0); HEMOGLOBIN. 7.7 g/dL (12.0-16.0); LYMPHOCYTES % 23.7 % (20.0-50.0); MEAN CORPUSCULAR HEMOGLOBIN 29.5 pg (28.0-32.0); MEAN CORPUSCULAR VOLUME 88.1 fL (81.0-99.0); MEAN PLATELET VOLUME 9.8 fl (7.4-10.4); MONOCYTES % 7.4 % (2.0-8.0); NEUTROPHILS % 64.3 % (40.0-76.0); PLATELET 180 x1000/uL (130-400); RED BLOOD CELL COUNT 2.62 mill/uL (4.2-5.4)
[2022-04-01 08:00] VITALS: BP 138/50
[2022-04-01] MEDS: LACTOBACILLUS GG CAPSULE PO SCH (10:57)
[2022-04-01] MEDS: IRON SUCROSE COMPLEX 100 MG/5 ML ML IV SCH (10:57)
[2022-04-01] MEDS: AMLODIPINE 2.5MG TABLET PO SCH ×2 (11:09→20:58)
[2022-04-01] MEDS: METOPROLOL TARTRATE 25MG TABLET PO SCH ×2 (11:11→20:58)
[2022-04-01 12:00] VITALS: BP_SYST 138; BP_SYST 141; BP_DIAS 55; BP_DIAS 75
[2022-04-01 16:00] VITALS: BP 141/75
[2022-04-01] MEDS: CEFTRIAXONE 2 G in DEXTROSE 5% WATER 50 ML IV SCH (17:24)
[2022-04-01] MEDS: DAPTOMYCIN 500 MG in SODIUM CHLORIDE 0.9% 50 ML IV SCH (19:05)
[2022-04-01 20:00] VITALS: BP 128/49
[2022-04-02] VITALS (7 sets, daily range): BP systolic 97–146; BP diastolic 37–99
[2022-04-02] MEDS ORDERED: CLOPIDOGREL 75MG TABLET PO SCH (10:00)
[2022-04-02] MEDS: AMLODIPINE 2.5MG TABLET PO SCH (10:21)
[2022-04-02] MEDS: IRON SUCROSE COMPLEX 100 MG/5 ML ML IV SCH (10:22)
[2022-04-02] MEDS: LACTOBACILLUS GG CAPSULE PO SCH (10:22)
[2022-04-02] MEDS: METOPROLOL TARTRATE 25MG TABLET PO SCH (10:22)
[2022-04-02] MEDS: CEFTRIAXONE 2 G in DEXTROSE 5% WATER 50 ML IV SCH (16:51)
== END 2022-04-02 20:50 | DRG 711 ==
LOC: ER 11:06 → 7WST 16:14 → ENRESERV 17:31 → MICUSO 03-22 12:42 → 6EST 03-25 00:06
PROVIDERS: ADMIT Internal Medicine; ATTEND Internal Medicine
PROC: 0JPT3XZ Removal of Tunneled Vascular Access Device from Trunk Subcutaneous Tissue and Fascia, Percutaneous Approach (ICD-10-PCS; 2022-03-01)
PROC: 02PAX3Z Removal of Infusion Device from Heart, External Approach (ICD-10-PCS; 2022-03-01)
PROC: B518ZZA Fluoroscopy of Superior Vena Cava, Guidance (ICD-10-PCS; 2022-03-03)
PROC: 02HV33Z Insertion of Infusion Device into Superior Vena Cava, Percutaneous Approach (ICD-10-PCS; 2022-03-03)
PROC: B548ZZA Ultrasonography of Superior Vena Cava, Guidance (ICD-10-PCS; 2022-03-03)
PROC: 5A1D70Z Performance of Urinary Filtration, Intermittent, Less than 6 Hours Per Day (ICD-10-PCS; 2022-03-03)
PROC: 03160JD Bypass Left Axillary Artery to Upper Arm Vein with Synthetic Substitute, Open Approach (ICD-10-PCS; principal; 2022-03-05)
PROC: 5A1D70Z Performance of Urinary Filtration, Intermittent, Less than 6 Hours Per Day (ICD-10-PCS; 2022-03-05)
PROC: 02HV33Z Insertion of Infusion Device into Superior Vena Cava, Percutaneous Approach (ICD-10-PCS; 2022-03-07)
PROC: B548ZZA Ultrasonography of Superior Vena Cava, Guidance (ICD-10-PCS; 2022-03-07)
PROC: 5A1D70Z Performance of Urinary Filtration, Intermittent, Less than 6 Hours Per Day (ICD-10-PCS; 2022-03-07)
PROC: 02PYX3Z Removal of Infusion Device from Great Vessel, External Approach (ICD-10-PCS; 2022-03-08)
PROC: 30233N1 Transfusion of Nonautologous Red Blood Cells into Peripheral Vein, Percutaneous Approach (ICD-10-PCS; 2022-03-10)
PROC: 4A10X4Z Monitoring of Central Nervous Electrical Activity, External Approach (ICD-10-PCS; 2022-03-11)
PROC: 05HY33Z Insertion of Infusion Device into Upper Vein, Percutaneous Approach (ICD-10-PCS; 2022-03-15)
PROC: B543ZZA Ultrasonography of Right Jugular Veins, Guidance (ICD-10-PCS; 2022-03-15)
PROC: 5A1D70Z Performance of Urinary Filtration, Intermittent, Less than 6 Hours Per Day (ICD-10-PCS; 2022-03-15)
PROC: 5A1D70Z Performance of Urinary Filtration, Intermittent, Less than 6 Hours Per Day (ICD-10-PCS; 2022-03-17)
PROC: 5A1D70Z Performance of Urinary Filtration, Intermittent, Less than 6 Hours Per Day (ICD-10-PCS; 2022-03-19)
PROC: 5A1D70Z Performance of Urinary Filtration, Intermittent, Less than 6 Hours Per Day (ICD-10-PCS; 2022-03-21)
PROC: 5A1D70Z Performance of Urinary Filtration, Intermittent, Less than 6 Hours Per Day (ICD-10-PCS; 2022-03-22)
PROC: 5A1D70Z Performance of Urinary Filtration, Intermittent, Less than 6 Hours Per Day (ICD-10-PCS; 2022-03-24)
PROC: 5A1D70Z Performance of Urinary Filtration, Intermittent, Less than 6 Hours Per Day (ICD-10-PCS; 2022-03-26)
PROC: 5A1D70Z Performance of Urinary Filtration, Intermittent, Less than 6 Hours Per Day (ICD-10-PCS; 2022-03-28)
PROC: 5A1D70Z Performance of Urinary Filtration, Intermittent, Less than 6 Hours Per Day (ICD-10-PCS; 2022-03-31)
DX: T80.211A Bloodstream infection due to central venous catheter, initial encounter (principal); D65 Disseminated intravascular coagulation [defibrination syndrome]; A41.02 Sepsis due to Methicillin resistant Staphylococcus aureus; I63.40 Cerebral infarction due to embolism of unspecified cerebral artery; I33.0 Acute and subacute infective endocarditis; I47.2 Ventricular tachycardia; E43 Unspecified severe protein-calorie malnutrition; D63.1 Anemia in chronic kidney disease; E87.2 Acidosis; J18.9 Pneumonia, unspecified organism; I12.0 Hypertensive chronic kidney disease with stage 5 chronic kidney disease or end stage renal disease; N18.6 End stage renal disease; E11.22 Type 2 diabetes mellitus with diabetic chronic kidney disease; E11.65 Type 2 diabetes mellitus with hyperglycemia; E87.6 Hypokalemia; I08.0 Rheumatic disorders of both mitral and aortic valves; I65.21 Occlusion and stenosis of right carotid artery; R09.02 Hypoxemia; T82.898A Other specified complication of vascular prosthetic devices, implants and grafts, initial encounter; Y83.2 Surgical operation with anastomosis, bypass or graft as the cause of abnormal reaction of the patient, or of later complication, without mention of misadventure at the time of the procedure; Y92.238 Other place in hospital as the place of occurrence of the external cause; J81.1 Chronic pulmonary edema; Y84.8 Other medical procedures as the cause of abnormal reaction of the patient, or of later complication, without mention of misadventure at the time of the procedure; R74.01 Elevation of levels of liver transaminase levels; Z20.822 Contact with and (suspected) exposure to COVID-19; Z79.899 Other long term (current) drug therapy; Z86.73 Personal history of transient ischemic attack (TIA), and cerebral infarction without residual deficits; Z90.49 Acquired absence of other specified parts of digestive tract; Z91.19 Patient's noncompliance with other medical treatment and regimen; Z99.2 Dependence on renal dialysis; Y92.89 Other specified places as the place of occurrence of the external cause; Z68.20 Body mass index [BMI] 20.0-20.9, adult
CPT/HCPCS: 36415; 36556; 36573; 36589; 36600; 70551; 71045; 71046; 71275; 76700; 76937; 77001; 80048; 80053; 80061; 80076; 80202; 82248; 82270; 82375; 82550; 82607; 82728; 82746; 82805; 82962; 82977; 83036; 83540; 83550; 83605; 83615; 83735; 84145; 84443; 85014; 85018; 85025; 85027; 85044; 85049; 85379; 85384; 86022; 86705; 86709; 86803; 86850; 86900; 86920; 87070; 87077; 87186; 87340; 87426; 92610; 93005; 93306; 93880; 93971; 95816; 97110; 97116; 97161; 97162; 97164; 97165; 97166; 97530; 97535; 99285; C1725; C1752; C1768; C1769; C1893; C9803; J0696; J0878; J0885; J1100; J1200; J1644; J1815; J2250; J2405; J2543; J2704; J2795; J3010; J3370; J3480; J3490; J7030; J7060; J8597; P9016; Q9967

== ENCOUNTER 2022-05-28 09:02 | Inpatient (IN) | payer MEDICAID, OTHER ==
[~2022-05-28] VITALS: Ht 162.6 cm; Wt 56.0 kg
[2022-05-28] VITALS (14 sets, daily range): BP systolic 134–159; BP diastolic 49–60
[2022-05-28 09:54] LABS: BASOPHILS % 0.5 % (0.0-2.0); EOSINOPHILS % 2.6 % (0.0-5.0); HEMATOCRIT. 27.2 % (36.0-48.0); HEMOGLOBIN. 8.9 g/dL (12.0-16.0); LYMPHOCYTES % 18.4 % (20.0-50.0); MEAN CORPUSCULAR HEMOGLOBIN 29.7 pg (28.0-32.0); MEAN CORPUSCULAR VOLUME 90.1 fL (81.0-99.0); MONOCYTES % 7.5 % (2.0-8.0); PLATELET 149 x1000/uL (130-400); RED BLOOD CELL COUNT 3.01 mill/uL (4.2-5.4); RED CELL DISTRIBUTION WIDTH 16.7 % (11.6-14.6)
[2022-05-28 10:02] LABS: CHLORIDE 105 mEq/L (98-107)
[2022-05-28 10:04] LABS: INR 1.2; PROTHROMBIN TIME 12.4 sec (9.6-11.0)
[2022-05-28] MEDS ORDERED: ALTEPLASE 2MG/VIAL ITC NR (11:45)
[2022-05-28] MEDS ORDERED: CEFAZOLIN 1000MG PREMIX 50 ML IV NR (11:45)
[2022-05-28] MEDS ORDERED: LIDOCAINE HCL 1% 50ML VIAL (10MG/ML) ONE (12:43)
[2022-05-28] MEDS ORDERED: HEPARIN 1000 UNITS/ML 10ML ONE (12:43)
[2022-05-28] MEDS ORDERED: IOHEXOL-300 100 ML BOTTLE ONE (12:44)
[2022-05-28] MEDS ORDERED: FENTANYL CITRATE/PF 50MCG/ML 2ML VIAL ONE (12:46)
[2022-05-28] MEDS ORDERED: FENTANYL CITRATE/PF 50MCG/ML 2ML VIAL IV ONE (15:00)
[2022-05-28] MEDS ORDERED: ENOXAPARIN 40MG/0.4ML SYR SUBCUT SCH (15:45)
[2022-05-28] MEDS ORDERED: ACETAMINOPHEN 325MG TABLET PO PRN (15:45)
[2022-05-28] MEDS ORDERED: ONDANSETRON HCL 4MG/2ML INJ IV PRN (15:45)
[2022-05-28] MEDS ORDERED: ENOXAPARIN 30MG/0.3ML SYR SUBCUT SCH (16:00)
[2022-05-28] MEDS: FUROSEMIDE 40MG TABLET PO SCH (17:36)
[2022-05-28] MEDS: GLIPIZIDE XL 2.5MG TABLET PO SCH (17:36)
[2022-05-28] MEDS: LISINOPRIL 10MG TABLET PO SCH (21:22)
[2022-05-28] MEDS: AMLODIPINE 5MG TABLET PO SCH (21:23)
[2022-05-29] VITALS: BP 138/51
[2022-05-29 04:00] VITALS: BP 130/43
[2022-05-29 07:26] LABS: BASOPHILS % 0.5 % (0.0-2.0); EOSINOPHILS % 1.5 % (0.0-5.0); HEMATOCRIT. 24.1 % (36.0-48.0); LYMPHOCYTES % 12.1 % (20.0-50.0); MEAN CORPUSCULAR HEMOGLOBIN 29.6 pg (28.0-32.0); MEAN CORPUSCULAR VOLUME 88.6 fL (81.0-99.0); MEAN PLATELET VOLUME 10.2 fl (7.4-10.4); MONOCYTES % 7.2 % (2.0-8.0); NEUTROPHILS % 78.7 % (40.0-76.0); PLATELET 162 x1000/uL (130-400); RED BLOOD CELL COUNT 2.72 mill/uL (4.2-5.4); RED CELL DISTRIBUTION WIDTH 16.5 % (11.6-14.6)
[2022-05-29 08:00] VITALS: BP 132/50
[2022-05-29] MEDS: GLIPIZIDE XL 2.5MG TABLET PO SCH (09:42)
[2022-05-29] MEDS: FUROSEMIDE 40MG TABLET PO SCH (09:42)
[2022-05-29] MEDS: AMLODIPINE 5MG TABLET PO SCH ×2 (09:43→22:46)
[2022-05-29] MEDS: LISINOPRIL 10MG TABLET PO SCH ×2 (09:43→22:46)
[2022-05-29 12:00] VITALS: BP 120/45
[2022-05-29] MEDS ORDERED: LORAZEPAM 1MG TABLET PO NR (12:15)
[2022-05-29] MEDS ORDERED: BARIUM SULFATE 176 GM SUSP.RECON ONE (13:44)
[2022-05-29 16:00] VITALS: BP 135/52
[2022-05-29 20:00] VITALS: BP 132/57
[2022-05-29] MEDS ORDERED: EPOETIN ALFA-EPBX 4,000 UNIT/ML VIAL SUBCUT NR ×2 (20:00)
[2022-05-29] MEDS ORDERED: IRON SUCROSE COMPLEX 100 MG/5 ML ML IV NR (20:00)
[2022-05-29] MEDS ORDERED: DIPHENHYDRAMINE 50MG/ML VIAL IV PRN (20:30)
[2022-05-29] MEDS ORDERED: DEXTROSE 50% WATER 50ML SYRINGE IV PRN (20:45)
[2022-05-29] MEDS ORDERED: EPOETIN ALFA 10000UNITS/ML VIAL SUBCUT NR (21:00)
[2022-05-29] MEDS: INSULIN LISPRO 100 UNITS/ML SUBCUT SCH (21:00)
[2022-05-29] MEDS: BLOOD SUGAR DIAGNOSTIC STRIP TEST SCH (21:00)
[2022-05-29 21:40] LABS: HEPATITIS B SURFACE ANTIGEN NEGATIVE
[2022-05-30] VITALS: BP 147/84
[2022-05-30 04:00] VITALS: BP 127/40
[2022-05-30] MEDS: BLOOD SUGAR DIAGNOSTIC STRIP TEST SCH ×3 (06:08→16:40)
[2022-05-30] MEDS: INSULIN LISPRO 100 UNITS/ML SUBCUT SCH ×3 (06:19→17:10)
[2022-05-30 08:00] VITALS: BP 132/47
[2022-05-30] MEDS ORDERED: DIPHENOXYLATE/ATROPINE 2.5/0.025MG TABLET PO NR ×2 (10:45→15:39)
[2022-05-30] MEDS ORDERED: DIPHENOXYLATE/ATROPINE 2.5/0.025MG TABLET PO PRN (10:45)
[2022-05-30] MEDS ORDERED: APIX2.5T PO (15:38)
[2022-05-30 15:46] LABS: BASOPHILS % 0.5 % (0.0-2.0); EOSINOPHILS % 1.7 % (0.0-5.0); HEMATOCRIT. 25.1 % (36.0-48.0); HEMOGLOBIN. 8.2 g/dL (12.0-16.0); LYMPHOCYTES % 15.8 % (20.0-50.0); MEAN CORPUSCULAR HEMOGLOBIN 28.9 pg (28.0-32.0); MEAN CORPUSCULAR VOLUME 88.2 fL (81.0-99.0); MONOCYTES % 5.9 % (2.0-8.0); NEUTROPHILS % 76.1 % (40.0-76.0); PLATELET 176 x1000/uL (130-400); RED BLOOD CELL COUNT 2.85 mill/uL (4.2-5.4); RED CELL DISTRIBUTION WIDTH 16.6 % (11.6-14.6)
[2022-05-30 16:00] VITALS: BP 127/57
[2022-05-30] MEDS ORDERED: APIXABAN 2.5 MG TABLET PO SCH (17:00)
[2022-05-30] MEDS: GLIPIZIDE XL 2.5MG TABLET PO SCH (18:14)
[2022-05-30] MEDS: LISINOPRIL 10MG TABLET PO SCH (18:15)
[2022-05-30] MEDS: AMLODIPINE 5MG TABLET PO SCH (18:15)
[2022-05-30] MEDS: FUROSEMIDE 40MG TABLET PO SCH (18:15)
[2022-05-30 18:16] VITALS: BP 127/57
[2022-05-30 20:33] VITALS: BP 132/43
== END 2022-05-30 20:23 | disposition home or self-care (01) | DRG 182 ==
LOC: ER 09:20 → 7EST 13:06 → EDBEDREQTM 13:07 → EDBEDREQ 13:07
PROVIDERS: ADMIT Internal Medicine; ATTEND Internal Medicine
PROC: 03783ZZ Dilation of Left Brachial Artery, Percutaneous Approach (ICD-10-PCS; principal; 2022-05-28)
PROC: 3E03317 Introduction of Other Thrombolytic into Peripheral Vein, Percutaneous Approach (ICD-10-PCS; 2022-05-28)
PROC: B51W1ZZ Fluoroscopy of Dialysis Shunt/Fistula using Low Osmolar Contrast (ICD-10-PCS; 2022-05-28)
DX: T82.868A Thrombosis due to vascular prosthetic devices, implants and grafts, initial encounter (principal); I13.2 Hypertensive heart and chronic kidney disease with heart failure and with stage 5 chronic kidney disease, or end stage renal disease; N18.6 End stage renal disease; D69.6 Thrombocytopenia, unspecified; E46 Unspecified protein-calorie malnutrition; D63.1 Anemia in chronic kidney disease; E11.22 Type 2 diabetes mellitus with diabetic chronic kidney disease; E11.51 Type 2 diabetes mellitus with diabetic peripheral angiopathy without gangrene; I08.0 Rheumatic disorders of both mitral and aortic valves; I25.10 Atherosclerotic heart disease of native coronary artery without angina pectoris; I44.0 Atrioventricular block, first degree; I50.9 Heart failure, unspecified; R13.10 Dysphagia, unspecified; Z68.21 Body mass index [BMI] 21.0-21.9, adult; Z99.2 Dependence on renal dialysis; I25.2 Old myocardial infarction; Z20.822 Contact with and (suspected) exposure to COVID-19; Z91.15 Patient's noncompliance with renal dialysis; Z86.73 Personal history of transient ischemic attack (TIA), and cerebral infarction without residual deficits; Z86.79 Personal history of other diseases of the circulatory system; Z86.14 Personal history of Methicillin resistant Staphylococcus aureus infection; Y83.2 Surgical operation with anastomosis, bypass or graft as the cause of abnormal reaction of the patient, or of later complication, without mention of misadventure at the time of the procedure; Y92.89 Other specified places as the place of occurrence of the external cause
CPT/HCPCS: 36415; 36905; 70551; 71045; 74230; 76937; 80048; 80053; 82962; 83036; 84484; 85025; 86705; 86709; 86803; 87340; 87426; 92610; 92611; 93005; 99152; 99153; 99285; A6261; C1725; C1766; C1769; C1893; C9803; J0690; J0885; J1644; J1650; J2997; J3010; J3490; Q9967; G0500